=== PATIENT | male | born 1955 | race Caucasian/White ===

== ENCOUNTER → 2021-02-13 13:39 | Outpatient (BNVA) | payer OTHER, SELFPAY | PROVIDERS: Family Provider Family Medicine; Visit Provider Surgery | DX: K62.5 Hemorrhage of anus and rectum (principal) | CPT/HCPCS: 87635 ==

== ENCOUNTER 2021-02-18 06:13 | Day surgery (SDC) | payer OTHER, SELFPAY ==
[2021-02-18 06:33] VITALS: BP 155/89; PULSE 59; RESP 18; TEMP 36.4; O2SAT 96
[2021-02-18] MEDS: sodium chloride 0.9% 1,000 ML 30 ML IV (06:39)
--- NOTE | 2021-02-18 07:49 | W.PM.OPSFHP ---
Same Day Surgery H&P Indication for Procedure/HPI DATE OF PROCEDURE: February 18, 2021 CHIEF COMPLAINT/INDICATIONFOR SURGICAL PROCEDURE: hematochezia, colonoscopy PREOP DIAGNOSIS: diagnostic PLANNED PROCEDRUE: Operation Date: 02/18/21 07:30 Proposed Procedures p Colonoscopy 65731 k62.5(Not Applicable) - Jose Raul Hi MD Medications/Allergies* Home Medications Medication Instructions Recorded Confirmed Type amlodipine 10 mg tablet 10 mg PO DAILY 01/18/21 02/18/21 History bupropion HCl 100 mg tablet 100 mg PO BID 01/18/21 02/18/21 History cholecalciferol (vitamin D3) 50 50 mcg PO DAILY 01/18/21 02/18/21 History mcg (2,000 unit) capsule hydrochlorothiazide 12.5 mg tablet 12.5 mg PO DAILY 01/18/21 02/18/21 History metoprolol tartrate 100 mg tablet 100 mg PO BID 01/18/21 02/18/21 History Allergies/Adverse Reactions Allergy/AdvReac Type Severity Reaction Status Date / Time No Known Allergies Allergy Verified 02/18/21 06:33 Current Medications: Generic Name Dose Route Start Last Admin Trade Name Freq PRN Reason Stop Dose Admin Sodium Chloride 1,000 mls @ 30 mls/hr 02/18/21 06:30 02/18/21 06:39 Sodium Chloride 0.9% IV 02/19/21 06:29 30 mls/hr .Q24H BAILEY Administration Pertinent History/Comorbid Conditions* Medical History (Updated 01/18/21 @ 11:55 by Jose Raul Hi MD) Depression Hypertension Surgical History (Updated 01/18/21 @ 11:55 by Jose Raul Hi MD) History of cholecystectomy 1991 Family History (Updated 01/18/21 @ 11:30 by Rosi Ross) Cancer Denies family history of Diabetes CAD (coronary artery disease) Hypertension Stroke Social History Smoking and tobacco status: former smoker Alcohol intake: current Alcohol intake frequency: few times a month Lives independently: Yes Marital status: / Pertinent Exam Findings alert, oriented x 3, regular rate & rhythm and operative site marked Recommendations Surgery/Procedure today Coding Level of Care Code Acute Meat And Seafood Manager for Mikey Mallory
--- NOTE | 2021-02-18 07:54 | ANES.PREANE2 ---
Pre-Anesthetic Assessment Pre-Anesthetic Assessment: Height/Weight: Height 1.8 m Weight 102.058 kg Temp Pulse Resp BP Pulse Ox 97.5 F L 59 L 18 155/89 96 02/18/21 06:33 02/18/21 06:33 02/18/21 06:33 02/18/21 06:33 02/18/21 06:33 Preop Diagnosis: diagnostic Proposed Procedure: Operation Date: 02/18/21 07:30 Proposed Procedures p Colonoscopy 67826 k62.5(Not Applicable) - Jose Raul Hi MD Was Beta Markus taken within 24 hours: Yes Last intake: Intake Last Liquid Date 02/17/21 Last Solid Date 02/16/21 Social: Social History: Tobacco Exam: Pre-Anes Outpt Exam: alert, oriented x 3, clear to auscultation bilaterally and regular rate & rhythm Airway: Submandibular: WNL Cervical ROM: WNL MP: 2 Dentition: Full History/ROS: No significant history except as noted and No significant complaints CV/HEM: CV/HEM: HTN : : None reported Hepatic: Hepatic: None reported GI: GI: None reported Metabolic: Metabolic: None reported Musc/skel: Musc/skel: None reported Neuropsych: Neuropsych: Depression Anesthetic Plan: ASA status: 2 Anesthesia: Anesthesia Evaluation and MAC Risk of > 500 ml blood loss (7ml/kg in children): No Meds/Allergies Current Medications: Current Medications Generic Name Dose Route Start Last Admin Trade Name Freq PRN Reason Stop Dose Admin Sodium Chloride 1,000 mls @ 30 ml s/hr 02/18/21 06:30 02/18/21 06:39 Sodium Chloride 0.9% IV 02/19/21 06:29 30 mls/hr .Q24H BAILEY Administration PFSH Anesthesia PFSH: Medical History Depression Hypertension Surgical History History of cholecystectomy 1990 Family History Other Cancer Denies family history of Diabetes CAD (coronary artery disease) Hypertension Stroke Social History Smoking and tobacco status: former smoker Alcohol intake: current Alcohol intake frequency: few times a month Lives independently: Yes Marital status: / Data Anesthesia Cardiac Studies: No Data to Display
[2021-02-18 08:28] VITALS: BP 153/88; PULSE 62; RESP 20; TEMP 36.7; O2SAT 96
[2021-02-18 08:43] VITALS: BP 167/89; PULSE 54; RESP 18; TEMP 36.6; O2SAT 98
--- NOTE | 2021-02-18 15:47 | ANE.PACU2 ---
Inpatient post-anesthesia follow up: Airway intact: Yes Vital signs: Temperature 97.8 F Pulse Rate 54 Respiratory Rate 18 Blood Pressure 167/89 Pulse Oximetry 98 Oxygen Delivery Me thod Room Air Oxygen Flow Rate Fraction of Inspir ed Oxygen Hydration adequate: Yes Nausea and vomiting: No Pain level: 1 Mental status: Baseline
== END 2021-02-18 09:10 | disposition home or self-care (01) ==
PROVIDERS: Family Provider Family Medicine; Visit Provider Surgery
PROC: 0DJD8ZZ Inspection of Lower Intestinal Tract, Via Natural or Artificial Opening Endoscopic (ICD-10-PCS; CPT 45378; principal; 2021-02-18 07:30)
DX: K92.1 Melena (principal); F32.9 Major depressive disorder, single episode, unspecified; I10 Essential (primary) hypertension; Z90.49 Acquired absence of other specified parts of digestive tract; Z87.891 Personal history of nicotine dependence; K57.30 Diverticulosis of large intestine without perforation or abscess without bleeding; D12.5 Benign neoplasm of sigmoid colon; K64.8 Other hemorrhoids
CPT/HCPCS: 45380; 88305; 96360; 96361; J2704; J7030

== ENCOUNTER 2022-03-18 08:50 | Outpatient (CLI) | payer OTHER, SELFPAY ==
--- NOTE | 2022-03-18 09:38 | PFTS_ITS ---
Date of Study:03/18/22 Date of Dictation: MECHANICS: Forced vital capacity (FVC) is normal. Forced expiratory volume in one second (FEV1) is normal. FEV1/FVC is normal. FLOW VOLUME LOOP: Mild scooping. LUNG VOLUMES: Total lung capacity (TLC) is normal. Residual volume (RV) is normal. DIFFUSING CAPACITY FOR CARBON MONOXIDE: Normal. INTERPRETATION: The postbronchodilator spirometry is normal. There is no significant postbronchodilator response. The flow-volume loop is consistent with small airways disease. Lung volumes are normal. Gas exchange (DLCO) is normal. MTDD
== END 2022-03-18 08:51 | disposition home or self-care (01) ==
LOC: RT 08:51
PROVIDERS: PCP Family Medicine; Visit Provider Family Medicine
DX: R06.00 Dyspnea, unspecified (principal)
CPT/HCPCS: 94010; 94726; 94729; J7614

== ENCOUNTER → 2022-03-27 13:08 | Outpatient (BNVA) | payer OTHER, SELFPAY | PROVIDERS: PCP Family Medicine; Visit Provider Internal Medicine | DX: I10 Essential (primary) hypertension (principal); R06.00 Dyspnea, unspecified; R06.02 Shortness of breath | CPT/HCPCS: 36415; 80048; 83880; 93005; 99203; 99204 ==

== ENCOUNTER → 2022-05-15 09:09 | Outpatient (BNVA) | payer OTHER, SELFPAY | PROVIDERS: PCP Family Medicine; Visit Provider Nurse Practitioner Family | DX: I48.0 Paroxysmal atrial fibrillation (principal); Z79.01 Long term (current) use of anticoagulants; Z86.16 Personal history of COVID-19 | CPT/HCPCS: 93005; 99213 ==

== ENCOUNTER 2022-05-15 09:22 | Outpatient (CLI) | payer OTHER, SELFPAY | END 2022-05-15 09:23 | disposition home or self-care (01) | LOC: HCSOACUTE 05-22 11:58 | PROVIDERS: PCP Family Medicine; Visit Provider Internal Medicine | DX: Z53.8 Procedure and treatment not carried out for other reasons (principal) | CPT/HCPCS: 93005; 99213 ==

== ENCOUNTER 2022-07-03 09:01 | Outpatient (CLI) | payer OTHER, SELFPAY ==
--- NOTE | 2022-07-03 | ECG_ITS ---
[facility] Test Date: 2022-07-03 Pat Name: Daniel Torres Department: Room: Gender: Male Fabrication Manager: Heather Hna : 1955 Requested By: Perez Calzada Order Number: [id number] Kelli MD: Senia Conner M.D. Interpretive Statements NAME OF STUDY: LEXISCAN SESTAMIBI STRESS TEST INDICATION: Chest Pain PROCEDURE: At the baseline, the blood pressure was 118/70 mmHg with a heart rate of 63 bpm. The electrocardiogram showed ectopic atrial rhythm at [address] changes. The Lexiscan was infused over a period of 20 seconds. A total of 0.4 milligrams of Lexiscan was infused. The stress phase was continued for a total of 5 minutes. Heart rate at the end of the stress phase was 76 beats per min with a blood pressure of 122/73 mmHg. The EKG at the peak infusion revealed no significant ST-T wave changes. The study was terminated due to protocol completion. Sestamibi was injected 20 seconds after the Lexiscan infusion. Blood pressure at the end of the recovery phase was 111/70 mmHg with a heart rate of 75 beats per minute. CONCLUSION: 1. No significant EKG changes with the LexiScan infusion. 2. No LexiScan induced chest pain or cardiac arrhythmia. 3. Normal blood pressure and heart rate response. 4. Sestamibi/sestamibi perfusion scan pending; see separate report. Electronically Signed On 07-06-2022 11:17:10 COLD WORKING INSPECTOR by Senia Conner M.D. [id number]
[2022-07-03 09:33] VITALS: BMI 32.1
--- NOTE | 2022-07-03 10:16 | NMCV_ITS ---
NM tiffani perf SPECT r/s* [id number] EduardDaniel krishnan Age: 66 Gender: M : 1955 Exam Date: 07/03/2022 10:15 Ordering Phys: Perez Calzada M.D ([email or web address]) Technologist: MALIK Matta Exam Location: [facility] Indications: CHEST PAIN STRESS TEST Please see separate stress test report in [facility] for full findings IMAGE PROTOCOL Rest/Stress 1 Lexiscan Day Radiopharmaceutical Dose (mCi) Administration Site Administered by Rest: Tc-99m 10.6 IV MALIK Machado Sestamibi Stress:Tc-99m 32.5 IV MALIK Machado Sestamiezra Rest: 03-Jul-2022 60 Discovery 630 Stress: 03-Jul-2022 30 Discovery 630 0.4mg Lexiscan. Images obtained in supine and prone position. SPECT RESULTS Technical Quality: Excellent Raw Data Analysis: Normal Image Corrections: No attenuation or motion correction applied Summed Stress Score: 2 Summed Rest Score: 5 Summed Difference Score: 0 PERFUSION FINDINGS Small sized perfusion abnrmality of moderate severity of mid to apical inferior, apical septal, apical lateral and apical rae on rest images with improved tracer uptake on stress images. This is suggestive of attenuation artifact. FUNCTIONAL RESULTS (calculated via Gated SPECT) Stress Image LV EF (%): 66 Stress EDV (mL):127 TID: 0.94 Stress ESV (mL):43 FUNCTIONAL FINDINGS: The left ventricle is normal in size. Transient Ischemia Dilatation of 0.94. The left ventricular ejection fraction is normal with a value of 66%. There is normal left ventricular wall thickening. Normal end diastolic and end systolic volumes. IMPRESSIONS 1. Myocardial perfusion imaging is normal. Attenuation artifact noted in inferior and apical rae. 2. Overall left ventricular systolic function is normal without regional wall motion abnormalities, LVEF=66%. 3. EKG portion of the study will be reported separately. Senia Conner MD (Electronically Signed) Final Date: 05 July 2022 19:02 S
[2022-07-03] MEDS: regadenoson 0.4 Mg/5 ml Syringe IVP (11:00)
[2022-07-03 13:00] VITALS: BP 111/70; PULSE 70
== END 2022-07-03 09:02 | disposition home or self-care (01) ==
LOC: CDL 09:03
PROVIDERS: PCP Family Medicine; Visit Provider Internal Medicine
DX: R07.9 Chest pain, unspecified (principal)
CPT/HCPCS: 78452; 93017; A9500; J2785

== ENCOUNTER → 2022-07-22 11:56 | Outpatient (BNVA) | payer OTHER, SELFPAY | PROVIDERS: PCP Family Medicine; Visit Provider Internal Medicine | DX: I10 Essential (primary) hypertension (principal); R06.00 Dyspnea, unspecified; I48.0 Paroxysmal atrial fibrillation; Z79.01 Long term (current) use of anticoagulants; F17.200 Nicotine dependence, unspecified, uncomplicated | CPT/HCPCS: 99214 ==

== ENCOUNTER → 2022-07-30 10:43 | Outpatient (BNVA) | payer OTHER, SELFPAY | PROVIDERS: PCP Family Medicine; Visit Provider Nurse Practitioner Family | DX: I48.0 Paroxysmal atrial fibrillation (principal) | CPT/HCPCS: 99213 ==

== ENCOUNTER 2023-02-24 08:28 | Outpatient (CLI) | payer OTHER, SELFPAY ==
--- NOTE | 2023-02-24 08:36 | USCV_ITS ---
MelissaDaniel Age: 67 Gender: M : 1955 Exam Date: 02/24/2023 08:43 Ordering Phys: Anat Ulloa MD Technologist: CT Exam Location: [facility] [place] Indication: screening HISTORY: Diameter (cm) AP x Transverse x Length Velocity (cm/s) Waveform Prox Aorta: 2.40 x 2.43 x 60.30 Mid Aorta: 2.12 x 2.12 x 59.10 Distal Aorta: 1.92 x 1.75 x Right Iliac Prox: 0.94 x 1.17 x 102.10 Left Iliac Prox: 1.15 x 1.26 x 59.70 Stent Prox Landing x x Aneurysmal Sac Max x x Lt Lat Sac Dim Rt Lat Sac Dim Stent Dist Landing x x Right Iliac Stent x x Left Iliac Stent x x Right Renal Art Left Renal Art FINDINGS: Comparison: none available. A complete assessment of the abdominal aorta was not possible. No evidence of abdominal aortic or bilateral iliac aneurysm. Normal Doppler flow velocites noted throught the aorta and common iliac arteries. CONCLUSIONS Limited but no AAA seen. Dr. Syl Ruff DO (Electronically Signed) Final Date: 24 February 2023 10:22 S
== END 2023-02-24 08:29 | disposition home or self-care (01) ==
LOC: RAD 08:31
PROVIDERS: PCP Family Medicine; Visit Provider Family Medicine
DX: Z13.6 Encounter for screening for cardiovascular disorders (principal)
CPT/HCPCS: 76706

== ENCOUNTER → 2023-03-27 09:10 | Outpatient (BNVA) | payer OTHER, SELFPAY | PROVIDERS: PCP Family Medicine; Visit Provider Internal Medicine Pulmonary Disease | DX: F17.200 Nicotine dependence, unspecified, uncomplicated; Z12.2 Encounter for screening for malignant neoplasm of respiratory organs; R06.09 Other forms of dyspnea | CPT/HCPCS: 36415; 82785; 86003; 99204 ==

== ENCOUNTER → 2023-04-21 12:50 | Outpatient (BNVA) | payer OTHER, SELFPAY | PROVIDERS: PCP Family Medicine; Visit Provider Internal Medicine | DX: I10 Essential (primary) hypertension (principal); R06.00 Dyspnea, unspecified; I48.0 Paroxysmal atrial fibrillation; Z79.01 Long term (current) use of anticoagulants; F17.200 Nicotine dependence, unspecified, uncomplicated | CPT/HCPCS: 99214 ==

== ENCOUNTER → 2023-06-12 10:57 | Outpatient (BNVA) | payer OTHER, SELFPAY | PROVIDERS: PCP Family Medicine; Visit Provider Internal Medicine Pulmonary Disease | DX: J44.89 Other specified chronic obstructive pulmonary disease (principal); Z12.2 Encounter for screening for malignant neoplasm of respiratory organs; F17.210 Nicotine dependence, cigarettes, uncomplicated; J82.83 Eosinophilic asthma | CPT/HCPCS: 99214 ==

== ENCOUNTER 2023-12-07 07:34 | Outpatient (CLI) | payer OTHER, SELFPAY ==
--- NOTE | 2023-12-07 08:00 | USCV_ITS ---
Daniel Torres Age: 68 Gender: M : 1955 Exam Date: 12/07/2023 08:03 Ordering Phys: Perez Calzada M.D ([email or web address]) Technologist: [place] [facility] [place]: murmur BP: 128 / 77 HR: 77 Rhythm: Sinus Technical Quality: Adequate MEASUREMENTS (Male / Female) Normal Values 2D ECHO LV Diastolic Diameter PLAX 5.5 cm 4.2 - 5.9 / 3.9 - 5.3 cm IVS Diastolic Thickness 1.3 cm 0.6 - 1.0 / 0.6 - 0.9 cm IVS Systolic Thickness 1.5 cm LVPW Diastolic Thickness 1.2 cm 0.6 - 1.0 / 0.6 - 0.9 cm LVPW Systolic Thickness 1.4 cm LVOT Diameter 2.0 cm LV Ejection Fraction 2D Teich 62.1 % LV Ejection Fraction MOD 2C 60.2 % LV Ejection Fraction 2C AL 61.0 % LA Diameter 3.6 cm RA Systolic Volume 4C AL 53.1 ml RA Systolic Volume 4C MOD 50.6 ml Aorta at Sinotubular Diameter 2.2 cm IVC Diameter 2.6 cm M-MODE LA Ao Ratio MM 1.2 AV Cusp Separation MM 2.4 cm DOPPLER AV Peak Velocity 138.0 cm/s LVOT Peak Velocity 128.0 cm/s AV Area Cont Eq vti 3.1 cm squared AV Area Cont Eq pk 2.9 cm squared MV Peak Velocity 108.0 cm/s MV Area PHT 4.0 cm squared Mitral E to A Ratio 1.0 TV Peak Velocity 182.5 cm/s TR Peak Velocity 201.5 cm/s TR Peak Gradient 16.2 mmHg TR Mean Velocity 136.0 cm/s TR Mean Gradient 8.8 mmHg TR Velocity Time Integral 52.0 cm TV Peak E Velocity 107.0 cm/s Right Atrial Pressure 3.0 mmHg Pulmonary Artery Systolic Pressu 19.2 mmHg PV Peak Velocity 107.0 cm/s FINDINGS Left Ventricle Left ventricle is normal in size. LV systolic function is normal with EF of 55 to 60%. No regional wall motion abnormalities are seen. Right Ventricle Normal in size and function Right Atrium Normal in size Left Atrium Normal in size Mitral Valve Structurally normal mitral valve.Mild mitral regurgitation. Aortic Valve Structurally normal aortic valve. Tricuspid Valve Mild tricuspid regurgitation. Insufficient TR jet to evaluate RVSP. Pulmonic Valve Not well visualized Pericardium Normal Aorta Normal in size IVC Grossly normal CONCLUSIONS LV systolic function is normal with EF 55 to 60%. Mild mitral regurgitation. Mild tricuspid regurgitation No comparison studies are available. Perez Calzada MD (Electronically Signed) Final Date: 12 December 2023 21:12 S
== END 2023-12-07 07:35 | disposition home or self-care (01) ==
LOC: RAD 07:35
PROVIDERS: PCP Family Medicine; Visit Provider Internal Medicine
DX: R01.1 Cardiac murmur, unspecified (principal); I08.1 Rheumatic disorders of both mitral and tricuspid valves
CPT/HCPCS: 93306

== ENCOUNTER → 2024-01-19 12:12 | Outpatient (BNVA) | payer OTHER, SELFPAY | PROVIDERS: PCP Family Medicine; Visit Provider Internal Medicine | DX: I10 Essential (primary) hypertension (principal); R06.00 Dyspnea, unspecified; I48.0 Paroxysmal atrial fibrillation; F17.210 Nicotine dependence, cigarettes, uncomplicated; Z79.01 Long term (current) use of anticoagulants | CPT/HCPCS: 99214 ==

== ENCOUNTER 2024-10-06 12:45 | Inpatient (IN) | payer OTHER, SELFPAY ==
[2024-10-06] VITALS (28 sets, daily range): BP systolic 77–132; BP diastolic 54–92; PULSE 127–160; RESP 16–28; TEMP 37; O2SAT 91–96; BMI 36.2
--- NOTE | 2024-10-06 12:42 | ECG_ITS ---
[facility] Date: 2024-10-06 Pat Name: Daniel Torres Department: Room: Gender: Male Tire Service Supervisor: : 1955 Requested By: Lauro Villa Order Number: [id number] Kelli MD: Perez Calzada M.D. Measurements Intervals [place] Rate: 167 P: 0 [place]: 0 QRS: 47 QRSD: 88 T: 59 QT: 259 QTc: 432 Interpretive Statements ATRIAL FIBRILLATION WITH RAPID VENTRICULAR RESPONSE NONSPECIFIC T-WAVE ABNORMALITY No previous ECG available for comparison Electronically Signed On 10-06-2024 21:49:52 RESEARCH AIDE by Perez Calzada M.D. [id number]
--- NOTE | 2024-10-06 12:42 | XR_ITS ---
WS: [id number] Portable AP upright chest, 10/06/2024 Clinical Data: dyspnea/cough Comparison: Two-view chest, 03/12/2022 Findings: No nodules, masses or effusions are seen. The heart is normal. The pulmonary vascularity is not increased. No pneumonia or pneumothorax is seen. The diaphragms are flattened. The aortic arch and descending thoracic aorta show mild tortuosity. There are monitor leads on the chest wall. XR/XR chest 1V portable [id number] Impression: Hyperinflation and atherosclerosis.
--- NOTE | 2024-10-06 12:50 | W.ED.SOB ---
HPI - SOB/Dyspnea General: Chief Complaint: Shortness of Breath/Dyspnea Stated Complaint: sob History of Present Illness: HPI Narrative: 69-year-old male presents emergency room complaining shortness of breath rapid heart rate last few days. He states he had a bit of a fever at times he is not have a fever at the time he arrives here. No vomiting no diarrhea no chest pain he has been extremely short of breath with any minimal activity. He has a known history of A-fib and is currently on Eliquis and metoprolol 50 mg twice a day has not had any recent medication changes. Associated symptoms: Reports orthopnea and palpitations; Deny abdominal pain, chest pain or fever(s) Related Data Home Medications ?Medication ?Instructions ?Recorded ?Confirmed cholecalciferol (vitamin D3) 50 50 mcg PO DAILY 01/18/21 10/06/24 mcg (2,000 unit) capsule potassium chloride 20 mEq 20 meq PO DAILY 03/27/22 10/06/24 tablet,extended release tamsulosin 0.4 mg capsule (Flomax) 0.4 mg PO DAILY 03/27/22 10/06/24 apixaban 5 mg tablet 5 mg PO BID 05/15/22 10/06/24 ascorbic acid (vitamin C) 500 mg 500 mg PO DAILY 05/15/22 10/06/24 capsule aspirin 81 mg tablet,delayed 81 mg PO DAILY 05/15/22 10/06/24 release (Adult Aspirin Regimen) hydrochlorothiazide 25 mg tablet 12.5 mg PO DAILY 10/06/24 10/06/24 Previous Rx's ?Medication ?Instructions ?Recorded furosemide 20 mg tablet (Lasix) 20 mg PO DAILY #30 tabs 01/19/24 diltiazem HCl 60 mg tablet 60 mg PO Q12H 30 days #60 tabs 10/08/24 metoprolol tartrate 25 mg tablet 25 mg PO Q12H 30 days #60 tabs 10/08/24 Allergies Allergy/AdvReac Type Severity Reaction Status Date / Time levofloxacin (From Levaquin) Allergy Unknown Unknown Verified 01/19/24 13:01 Review of Systems Const: Denies: fever(s) or chills Card: Reports: palpitations, irregular heart rhythm, dyspnea on exertion and orthopnea; Denies: chest pain, edema or swelling of feet/ankles Resp: Reports: dyspnea GI: Denies: abdominal pain : Denies: dysuria, urinary frequency or urinary urgency Musc: Denies: neck pain or back pain Skin/Breast: Denies: rash PFSH ED PFSH: Medical History Atrial fibrillation Depression Hypertension Surgical History History of cholecystectomy 1991 Family History Other Cancer Denies family history of Diabetes CAD (coronary artery disease) Hypertension Stroke Social History Smoking and tobacco/nicotine status: current every day tobacco/nicotine user cigarettes Packs smoked per day: 2 Years cigarettes smoked: 50 [ Other cigarette details: started at age 16] Quit status (tobacco/nicotine): considering quitting Alcohol intake: current Alcohol intake frequency: few times a month Substance/Drug Use: never Lives independently: Yes Marital status: / Physical Exam Const: GENERAL APPEARANCE: cooperative ORIENTATION/CONSCIOUSNESS: Yes awake, Yes oriented to person, Yes oriented to place and Yes oriented to time HENMT: COMMON NORMALS: normocephalic, atraumatic and hearing grossly normal bilaterally HEAD & SCALP: normocephalic and atraumatic Resp: COMMON NORMALS: normal respiratory effort, No retractions and No use of accessory muscles AUSCULTATION: crackles Cardio: COMMON NORMALS: No murmurs present (Cardio) RATE: tachycardic RHYTHM: abnormal rhythm irregularly irregular GI: COMMON NORMALS: Soft to palpation and No hepatosplenomegaly present AUSCULTATION: Yes normoactive bowel sounds PALPATION: Yes Soft to palpation, No Tenderness to palpation present (GI), No Guarding due to palpation present (GI) and Yes No hepatosplenomegaly present Extremity: COMMON NORMALS: normal to inspection, capillary refill normal and no calf tenderness OTHER: Trace edema lower extremities Neuro: SENSORIUM/ORIENTATION: Yes oriented to person, Yes oriented to place and Yes oriented to time Skin: COMMON NORMALS: no rashes or lesions noted GENERAL SKIN EXAM: no rashes or lesions noted Course Vital Signs: Vital signs: Vital Signs Temperature 98.3 F 10/08/24 12:00 Pulse Rate 84 10/08/24 16:27 Respiratory Rate 20 H 10/08/24 16:27 Blood Pressure 152/78 10/08/24 16:27 Pulse Oximetry 98 10/08/24 16:27 Oxygen Delivery Me thod Room Air 10/08/24 15:15 Oxygen Flow Rate 2 10/08/24 07:25 MDM - SOB/Dyspnea Medical Decision Making Patient has persistent A-fib we are unable to get him to stop with Cardizem blood pressure decreased we switched to amiodarone and on 1 mg/h he is still having persistent A-fib RVR. He is stable at this time but his heart rate continues to be elevated to 130s and 140s. Chest x-ray was normal. No acute EKG changes other than his A-fib with RVR. Cardiac enzymes negative. Medical Records I reviewed the patient's medical records. Lab Data I reviewed the patient's lab results. 10/08/24 02:20 10/08/24 02:20 Labs/Radiology: Radiology Impressions Chest X-Ray 10/06/24 12:42 Impression: Hyperinflation and atherosclerosis. Chest CT 10/06/24 16:05 IMPRESSION: 1. Mild tree-in-bud nodularity bilaterally favors an atypical infectious process. Consider imaging follow-up after clinical treatment to document resolution. 2. 6 mm left upper lobe ground-glass nodule. For patients at low risk (minimal or absent history of smoking and of other known risk factors), no routine follow-up is indicated. For patients at high risk (history of smoking or of other known risk factors), consider optional CT Chest at 12 months. (Reference: Gela) 3. Hepatic steatosis. 4. Status post cholecystectomy. 5. Colonic diverticulosis. 6. Left adrenal nodules may represent adenomas. In a patient with no cancer history, consider 12 month follow-up adrenal CT. (Reference: Isabel) COMMENTS: Consistent with the [place] [employer]'s Incidental Findings Committee white paper (J Am Gabriel Radiol 2017): For any incidental adrenal lesion greater than or equal to 1 cm but less than or equal to 4 cm classified in this report as benign, likely benign, or containing fat (including classification as an adenoma or myelolipoma), no follow-up imaging is recommended per consensus recommendations based on imaging criteria. Further lab evaluation could be pursued if warranted based on clinical findings. REFERENCES: 1. Isabel REEDER, et al. Management of Incidental Adrenal Masses: A White Paper of the ACR Incidental Findings Committee. J Am Gabriel Radiol. 2017;14(8):2322-9336. 2. Gela Bateman et al. Guidelines for Management of Incidental Pulmonary Nodules Detected on CT Images: From the Fleischner Society 2017. Radiology. 2017;284(1):228-243. Liver Ultrasound 10/08/24 08:41 IMPRESSION: 1. Hepatic steatosis with hepatomegaly. 2. Post cholecystectomy with no biliary dilatation. Laboratory Results WBC 9.60 10^3/uL (3.29-11.43) 10/06/24 12:49 RBC 5.68 10^6/uL (3.85-5.65) H 10/06/24 12:49 Hgb 16.30 g/dL (11.27-16.99) 10/06/24 12:49 Hct 47.7 % (37-53) 10/06/24 12:49 MCV 84.0 fl (82-101) 10/06/24 12:49 MCH 28.7 pg (27-33) 10/06/24 12:49 MCHC 34.2 g/dL (30-55) 10/06/24 12:49 RDW 13.6 % (12.1-15.1) 10/06/24 12:49 Plt Count 234 10^3/cmm (157-399) 10/06/24 12:49 MPV 9.5 fL (7.4-10.4) 10/06/24 12:49 Neut % (Auto) 72.9 % 10/06/24 12:49 Lymph % (Auto) 19.0 % 10/06/24 12:49 [place] % (Auto) 7.2 % 10/06/24 12:49 Eos % (Auto) 0.1 % 10/06/24 12:49 Baso % (Auto) 0.4 % 10/06/24 12:49 Neut # (Auto) 7.00 10^3/uL (1.8-7.7) 10/06/24 12:49 Lymph # (Auto) 1.8 10^3/uL (0.8-4.8) 10/06/24 12:49 [place] # (Auto) 0.7 10^3/uL (0.2-0.9) 10/06/24 12:49 Eos # (Auto) 0.0 10^3/uL (0.0-0.8) 10/06/24 12:49 Baso # (Auto) 0.0 10^3/uL (0.0-0.1) 10/06/24 12:49 Nucleated RBC % (auto) 0 % 10/06/24 12:49 Nucleated RBCs # 0.0 /100WBC 10/06/24 12:49 PT 14.10 SECONDS (12.1-14.9) 10/06/24 12:49 INR 1.02 (0.8-1.2) 10/06/24 12:49 Sodium 137 mmol/L (136-145) 10/06/24 12:49 Potassium 3.5 mmol/L (3.5-5.1) 10/06/24 12:49 Chloride 100 mmol/L (98-107) 10/06/24 12:49 Carbon Dioxide 24 mmol/L (22-29) 10/06/24 12:49 Anion Gap 16.5 (5-19) 10/06/24 12:49 BUN 15 mg/dL (8-23) 10/06/24 12:49 Creatinine 0.9 mg/dL (0.7-1.2) 10/06/24 12:49 GFR Calculation 83.9 mL/min (90-130) L 10/06/24 12:49 Glucose 118 mg/dL (65-115) H 10/06/24 12:49 Estimat Average Glucose 117 10/06/24 12:49 Hemoglobin A1c 5.7 % (4.0-6.0) 10/06/24 12:49 Calculated Osmolality 286 mOsm/kg (285-295) 10/06/24 12:49 Lactic Acid 1.5 mmol/L (0.5-2.2) 10/06/24 12:49 Calcium 8.4 mg/dL (8.5-10.5) L 10/06/24 12:49 Magnesium 1.7 mg/dL (1.7-2.3) 10/06/24 15:28 Total Bilirubin 0.5 mg/dL (0.15-1.2) 10/06/24 12:49 AST 50 U/L (0-40) H 10/06/24 12:49 ALT 76 U/L (0-41) H 10/06/24 12:49 Alkaline Phosphatase 69 U/L (40-130) 10/06/24 12:49 Troponin T Baseline 16 ng/L (0-15) H 10/06/24 12:49 Troponin T 120 Minute 14.61 ng/L (0-15) 10/06/24 15:28 Delta Troponin T -1.39 ABS# (0-10) L 10/06/24 15:28 C-Reactive Protein 5.9 mg/L (0.0-4.9) H 10/06/24 15:28 NT-Pro-B Natriuret Pep 711 pg/mL (0-125) H 10/06/24 15:28 Total Protein 7.0 g/dL (6.6-8.7) 10/06/24 12:49 Albumin 3.7 g/dL (3.5-5.2) 10/06/24 12:49 Globulin 3.3 g/dL (1.3-4.6) 10/06/24 12:49 Triglycerides 81 mg/dL (0-150) 10/06/24 15:28 Cholesterol 95 mg/dL (0-200) 10/06/24 15:28 LDL Cholesterol, Calc 47 mg/dL (50-129) L 10/06/24 15:28 HDL Cholesterol 32 mg/dL (60-100) L 10/06/24 15:28 LDL/HDL Ratio 1.47 RATIO (0.00-3.22) 10/06/24 15:28 Cholesterol/HDL Ratio 2.97 mg/dL (1.0-5.00) 10/06/24 15:28 Procalcitonin 0.07 ng/mL (0-0.5) 10/06/24 15:28 All radiology interpretation(s) finalized by discharge Discharge Plan Discharge Patient Disposition: Admitted As Inpatient Admit Provider: Alejandro Grimes Clinical Impression: Atrial fibrillation with rapid ventricular response Condition: Stable Discharge Diet: Cardiac Discharge Activity: Resume usual activity Coding Level of Care Code ED Public Relations Coordinator for [employer]enc[employer] Mohamud
[2024-10-06] MEDS: dilTIAZem 5 mg/mL SDV 5 mL 20 MG IVP (12:52)
[2024-10-06 12:55] LABS: Basophils % 0.4 %; Eosinophils % 0.1 %; Hematocrit 47.7 % (37-53); Lymphocytes # 1.8 10^3/uL (0.8-4.8); Mean Corpuscular HGB Conc 34.2 g/dL (30-55); Mean Corpuscular Hemoglobin 28.7 pg (27-33); Mean Platelet Volume 9.5 fL (7.4-10.4); Monocytes # 0.7 10^3/uL (0.2-0.9); Monocytes % 7.2 %; Neutrophils % 72.9 %; Nucleated Red Blood Cells % 0 %; Platelet Count 234 10^3/cmm (157-399); Red Blood Count 5.68 10^6/uL (3.85-5.65); Red Cell Distribution Width 13.6 % (12.1-15.1)
[2024-10-06 13:11] LABS: Alanine Aminotransferase 76 U/L (0-41); Albumin Level 3.7 g/dL (3.5-5.2); Alkaline Phosphatase 69 U/L (40-130); Anion Gap 16.5 (5-19); Aspartate Amino Transferase 50 U/L (0-40); Blood Urea Nitrogen 15 mg/dL (8-23); Calcium 8.4 mg/dL (8.5-10.5); Carbon Dioxide 24 mmol/L (22-29); Chloride 100 mmol/L (98-107); Creatinine Clr Calc Pharmacy 102.6151; Globulin 3.3 g/dL (1.3-4.6); Glomerular Filtration Rate 83.9 mL/min (90-130); Glucose 118 mg/dL (65-115); Osmolality Calculated 286 mOsm/kg (285-295); Potassium 3.5 mmol/L (3.5-5.1); Sodium 137 mmol/L (136-145); Total Bilirubin 0.5 mg/dL (0.15-1.2)
[2024-10-06] MEDS: dilTIAZem 100 MG in sodium chloride 0.9% (add-van) 100 ML IV (13:34)
--- NOTE | 2024-10-06 14:24 | PC.PHAR ---
Addendum entered by Ally Card 10/06/24 15:24: Refaxed 3:23pm Original Note: [facility] 10/06/24 2:15pm
[2024-10-06] MEDS: amiodarone 150 MG/100 ML PREMIX 400 MG IV (14:42)
--- NOTE | 2024-10-06 15:17 | ECG_ITS ---
[employer] Test Date: 2024-10-06 Pat Name: Daniel Torres Department: Room: EDIP Gender: Male Keno Writer / Runner: : 1955 Requested By: Lauro Villa Order Number: [id number] Kelli MD: Perez Calzada M.D. Measurements Intervals [place] Rate: 154 P: 0 VT: 0 QRS: 79 QRSD: 88 T: 68 QT: 293 QTc: 469 Interpretive Statements ATRIAL FIBRILLATION WITH RAPID VENTRICULAR RESPONSE NONSPECIFIC ST & T-WAVE ABNORMALITY Compared to ECG 10/06/2024 12:51:30 No significant changes Electronically Signed On 10-06-2024 21:48:38 FINAL INSTALLER INSPECTOR by Perez Calzada M.D. [email or web address] [id number]
[2024-10-06 15:57] LABS: Troponin(5th) Baseline 16 ng/L (0-15)
--- NOTE | 2024-10-06 16:03 | PM.HP ---
Providers/Chief Complaint Admitting Physician: Alejandro Grimes MD Primary Care Provider: Anat Ulloa MD Chief Complaint: sob History of Present Illness Daniel Torres is a 69 year old male with a past medical history of obesity, hypertension, diastolic CHF, atrial fibrillation on Eliquis who presents [facility] due to palpitations, shortness of breath. Currently patient is alert oriented x 3, following all commands, he tells me a week ago he was sick, he thinks he had the flu, he had fevers, chills, cough continues to have a cough however sputum vision chills have resolved. But for the last few days he has had palpitations heart rates up into the low 130s 140s at home, he has been taking his Metroprolol taking his Eliquis, continues to have a cough, no fevers, chills but does have diarrhea, no abdominal pain, no chest pain Review of Systems Const: Reports: fatigue and malaise; Denies: fever(s) or chills Card: Reports: palpitations; Denies: chest pain Resp: Reports: dyspnea GI: Denies: abdominal pain Neuro: Denies: headache(s) Medications/Allergies Home Medications ?Medication ?Instructions ?Recorded ?Confirmed ?Last Taken ?Type amlodipine 10 mg tablet 10 mg PO DAILY 01/18/21 10/06/24 10/06/24 History cholecalciferol (vitamin D3) 50 50 mcg PO DAILY 01/18/21 10/06/24 10/06/24 History mcg (2,000 unit) capsule potassium chloride 20 mEq 20 meq PO DAILY 03/27/22 01/19/24 Unknown History tablet,extended release tamsulosin 0.4 mg capsule (Flomax) 0.4 mg PO DAILY 03/27/22 01/19/24 Unknown History apixaban 5 mg tablet 5 mg PO BID 05/15/22 10/06/24 10/06/24 History ascorbic acid (vitamin C) 500 mg 500 mg PO DAILY 05/15/22 10/06/24 10/05/24 History capsule aspirin 81 mg tablet,delayed 81 mg PO DAILY 05/15/22 10/06/24 10/06/24 History release (Adult Aspirin Regimen) furosemide 20 mg tablet (Lasix) 20 mg PO DAILY #30 tabs 01/19/24 01/19/24 Unknown Rx hydrochlorothiazide 25 mg tablet 12.5 mg PO DAILY 10/06/24 10/06/24 10/06/24 History Allergies Allergy/AdvReac Type Severity Reaction Status Date / Time levofloxacin (From Levaquin) Allergy Unknown Unknown Verified 01/19/24 13:01 PFSH Acute PFSH: Medical History Atrial fibrillation Depression Hypertension Surgical History History of cholecystectomy 1991 Family History Other Cancer Denies family history of Diabetes CAD (coronary artery disease) Hypertension Stroke Social History Smoking and tobacco/nicotine status: current every day tobacco/nicotine user cigarettes Packs smoked per day: 2 Years cigarettes smoked: 50 [ Other cigarette details: started at age 16] Quit status (tobacco/nicotine): considering quitting Alcohol intake: current Alcohol intake frequency: few times a month Substance/Drug Use: never Lives independently: Yes Marital status: / Vitals/I&O/Wt Last Vital Signs Temp 98.6 F 10/06/24 12:34 Pulse 140 H 10/06/24 15:40 Resp 16 10/06/24 15:40 BP 98/74 10/06/24 15:40 Pulse Ox 93 10/06/24 15:40 O2 Del Method Nasal Cannula 10/06/24 12:54 O2 Flow Rate 2 10/06/24 12:54 10/06/24 10/06/24 10/06/24 06:59 14:59 22:59 Intake Total 11.916 / 11.916 100 / 111.916 Balance 11.916 / 11.916 100 / 111.916 Weight last 48 hrs Weight 117.934 kg Physical Exam Const: COMMON NORMALS: no acute distress and patient oriented x3 Eye: COMMON NORMALS: Equal, round and reactive pupils present and EOMs intact bilaterally Resp: COMMON NORMALS: normal respiratory effort, No retractions, No use of accessory muscles and clear to auscultation bilaterally AUSCULTATION: crackles and wheezes Cardio: COMMON NORMALS: no JVD, regular rate, regular rhythm, S1 normal heart sound present and S2 normal heart sound present RATE: tachycardic RHYTHM: abnormal rhythm irregularly irregular HEART SOUNDS: S1 normal heart sound present and S2 normal heart sound present GI: COMMON NORMALS: Normal to inspection, nondistended, normoactive bowel sounds present, Soft to palpation and non-tender Extremity: COMMON NORMALS: no pedal edema Neuro: COMMON NORMALS: patient oriented x3, CN's II-XII intact bilaterally and moves all extremities Psych: COMMON NORMALS: mental status grossly normal Data 10/06/24 12:49 10/06/24 12:49 A&P Assessment and plan (1) Asthma-COPD overlap syndrome: (2) Acute hypoxic respiratory failure: (3) Atrial fibrillation with rapid ventricular response: (4) Pneumonia: (5) COPD exacerbation: Plan Acute hypoxic respiratory failure -Multifactorial -A-fib with RVR -Concerns for pneumonia -COPD exacerbation Plan -Monitor cardiac stepdown unit -Sputum cultures -Blood cultures -CRP, Pro-Issac, lactic acid -CT chest -Continue Rocephin -Azithromycin -Troponin series -DuoNeb -Budesonide -Solu-Medrol 125 followed by 40 mg IV every 8 hours A-fib with RVR -Did not respond to Cardizem push, Cardizem drip -Has received amiodarone bolus and amiodarone drip -Heart rates in the 140s blood pressure soft 98/70 -He is alert awake, following all commands, no lightheaded, no dizziness, no chest pain -Will give him a liter bolus -Will consider low-dose metoprolol patient clinical progress -Will consider consultation with cardiology for cardioversion based on clinical progress Full code Eliquis for DVT prophylaxis PDMP PDMP Reviewed: Not Reviewed Attestations Medical Necessity Statement*: Patient requires hospitalization for acute hypoxic respiratory, A-fib with RVR, pneumonia, COPD, inpatient, greater than 2 minutes Diagnoses Asthma-COPD overlap syndrome J44.89 Acute hypoxic respiratory failure J96.01 Atrial fibrillation with rapid ventricular response I48.91 Pneumonia J18.9 COPD exacerbation J44.1
--- NOTE | 2024-10-06 16:05 | CTR_ITS ---
PROCEDURE INFORMATION: Exam: CT Chest Without Contrast; Diagnostic Exam date and time: 10/06/2024 4:36 PM Age: 69 years old Clinical indication: Cough and shortness of breath and wheezing; Additional info: SOB, wheezing, cough TECHNIQUE: Imaging protocol: Diagnostic computed tomography of the chest without contrast. Radiation optimization: All CT scans at this facility use at least one of these dose optimization techniques: automated exposure control; mA and/or kV adjustment per patient size (includes targeted exams where dose is matched to clinical indication); or iterative reconstruction. COMPARISON: CR XR chest 1V portable [id number] 10/06/2024 12:55 PM RADIATION DOSE METRICS: Total DLP (mGy-cm): 618.81 FINDINGS: Lungs: Mild biapical pleural/parenchymal scarring. No focal consolidation or generalized interstitial process. 6 mm ground-glass left upper lobe nodule on series 4, image 28. A few faint areas of tree-in-bud nodularity are seen in the right upper and right middle lobes and to a lesser degree in the lower lobes bilaterally. Pleural spaces: Unremarkable. No pneumothorax. No pleural effusion. Heart: Unremarkable. No cardiomegaly. No pericardial effusion. Lymph nodes: Unremarkable. No enlarged lymph nodes. Vasculature: Mild atherosclerotic aortic calcifications. No thoracic aortic aneurysm. Liver: Hepatic steatosis. Gallbladder and biliary ducts: Status post cholecystectomy. Adrenal glands: Nodular thickening of the left adrenal gland with nodules measuring up to 1.7 cm. These appear relatively low in attenuation. Intestine: Colonic diverticulosis within the visualized upper abdomen. Bones/joints: [id number] degenerative changes of the spine. No acute or aggressive osseous lesion. Soft tissues: 1.4 cm mildly complex fluid collection in the subcutaneous fat of the anterior chest wall to the left of midline likely represents a small sebaceous cyst and appears benign. CT/CT chest wo con [id number] IMPRESSION: 1. Mild tree-in-bud nodularity bilaterally favors an atypical infectious process. Consider imaging follow-up after clinical treatment to document resolution. 2. 6 mm left upper lobe ground-glass nodule. For patients at low risk (minimal or absent history of smoking and of other known risk factors), no routine follow-up is indicated. For patients at high risk (history of smoking or of other known risk factors), consider optional CT Chest at 12 months. (Reference: Gela) 3. Hepatic steatosis. 4. Status post cholecystectomy. 5. Colonic diverticulosis. 6. Left adrenal nodules may represent adenomas. In a patient with no cancer history, consider 12 month follow-up adrenal CT. (Reference: Isabel) COMMENTS: Consistent with the [place] [employer]'s Incidental Findings Committee white paper (J Am Gabriel Radiol 2017): For any incidental adrenal lesion greater than or equal to 1 cm but less than or equal to 4 cm classified in this report as benign, likely benign, or containing fat (including classification as an adenoma or myelolipoma), no follow-up imaging is recommended per consensus recommendations based on imaging criteria. Further lab evaluation could be pursued if warranted based on clinical findings. REFERENCES: 1. Isabel REEDER, et al. Management of Incidental Adrenal Masses: A White Paper of the ACR Incidental Findings Committee. J Am Gabriel Radiol. 2017;14(8):8376-4810. 2. Gela H et al. Guidelines for Management of Incidental Pulmonary Nodules Detected on CT Images: From the Fleischner Society 2017. Radiology. 2017;284(1):228-243.
[2024-10-06 16:14] LABS: ABG PCO2 31.6 mmHg (35-45); ABG PH Result 7.49 (7.35-7.45); Arterial Blood Gas Hematocrit 51.6 % (42-52); Base Excess ABG 1.3 mmol/L (-2.0-2.0); Blood Gas Allen Test Pos; Blood Gas Operator Identificat WALCI; Blood Gas Sample Site Radial, right; Blood Gas Sample Type Arterial; HCO3 ABG 23.8 mmol/L (22-26); Oxygen Device NC; PO2 ABG 63.7 mmHg (80.0-100.0)
[2024-10-06 16:27] LABS: INR 1.02 (0.8-1.2)
[2024-10-06] MEDS: levalbuterol 0.63 mg/3 mL Neb INHALATION (16:28)
[2024-10-06 16:29] LABS: Lactic Sepsis W/Reflex 1.5 mmol/L (0.5-2.2)
[2024-10-06 16:30] LABS: Troponin 5 2HR 14.61 ng/L (0-15); Troponin 5 2HR Delta -1.39 ABS# (0-10)
[2024-10-06 16:41] LABS: NT Pro B Type Natriuretic Pept 711 pg/mL (0-125); Procalcitonin 0.07 ng/mL (0-0.5)
[2024-10-06 16:52] LABS: C Reactive Protein 5.9 mg/L (0.0-4.9); Chol HDL Ratio 2.97 mg/dL (1.0-5.00); Cholesterol 95 mg/dL (0-200); HDL Cholesterol 32 mg/dL (60-100); LDL Cholesterol Calculated 47 mg/dL (50-129); LDL HDL Ratio 1.47 RATIO (0.00-3.22); Magnesium 1.7 mg/dL (1.7-2.3); Triglycerides 81 mg/dL (0-150)
[2024-10-06] MEDS: methylPREDNISolone sod succ 125 mg/2 mL INJ IVP (17:06)
[2024-10-06] MEDS: pantoprazole 40 mg SDV IVP (17:07)
[2024-10-06] MEDS: cefTRIAXone 1,000 mg SDV 1000 MG IVP (17:09)
[2024-10-06 17:13] LABS: Influenza A NEGATIVE (Negative); Influenza B NEGATIVE (Negative); Respiratory Syncytial Virus Ce NEGATIVE (Negative); SARS-CoV-2 PCR NEGATIVE (Negative)
[2024-10-06] MEDS: lactated ringers 500 ML 999 ML IV (17:15)
--- NOTE | 2024-10-06 17:17 | ECG_ITS ---
[employer] Test Date: 2024-10-06 Pat Name: Daniel Torres Department: Room: EDIP Gender: Male [employer]: : 1955 Requested By: Lauro Villa Order Number: [id number] Kelli MD: Perez Calzada M.D. Measurements Intervals [place] Rate: 142 P: 0 MA: 0 QRS: 86 QRSD: 90 T: 32 QT: 310 QTc: 477 Interpretive Statements ATRIAL FIBRILLATION WITH RAPID VENTRICULAR RESPONSE NONSPECIFIC ST & T-WAVE ABNORMALITY Compared to ECG 10/06/2024 16:11:51 No significant changes Electronically Signed On 10-06-2024 22:14:09 REFLESHER by Perez Calzada M.D. [email or web address]
[2024-10-06] MEDS: AZITHROMYCIN ADD-Vantage 500 MG in 0.9% NaCl ADD-Vantage 250 ML 250 MG IV (17:44)
[2024-10-06] MEDS: apixaban 5 mg Tablet PO (18:49)
[2024-10-06 19:58] LABS: Estmated Average Glucose 117; Hemoglobin A1C 5.7 % (4.0-6.0)
[2024-10-06 21:46] LABS: Bilirubin Urine Negative (Negative); Blood Urine Negative (Negative); Glucose Urine UA Negative (Normal); Ketones Urine Trace (Negative); Leukocyte Esterase Urine Negative (Negative); Nitrate Urine Negative (Negative); Protein Urine 1+ (Negative); Specific Gravity, Urine 1.026 (1.005-1.030); Urine Appearance Clear (CLEAR); Urine Color Yellow (Yellow); pH Urine 5.5 (5-7)
[2024-10-06] MEDS: budesonide 0.5 mg/2 mL Neb INHALATION (21:50)
[2024-10-06 21:51] LABS: Add Urine Microscopic? YES; Bacteria Urine None Seen /hpf; Hyaline Casts Urine 10.73 /lpf; RBC Urine 0-2 /hpf (0-2); Squamous Epithelial Cell Urine 0-5 /hpf (0-5); WBC Urine 0-5 /hpf (0-5)
[2024-10-06 22:02] LABS: UA Slide Review UA Slide Review Perf
[2024-10-07] VITALS (66 sets, daily range): BP systolic 100–155; BP diastolic 69–128; PULSE 73–152; RESP 16–30; TEMP 36.6–37.1; O2SAT 90–98; BMI 35.3
[2024-10-07 02:32] LABS: Basophils % 0.2 %; Hematocrit 43.8 % (37-53); Lymphocytes # 0.9 10^3/uL (0.8-4.8); Lymphocytes % 19.6 %; Mean Corpuscular HGB Conc 33.8 g/dL (30-55); Mean Corpuscular Hemoglobin 28.4 pg (27-33); Mean Corpuscular Volume 84.1 fl (82-101); Mean Platelet Volume 9.6 fL (7.4-10.4); Monocytes # 0.1 10^3/uL (0.2-0.9); Nucleated Red Blood Cells % 0 %; Platelet Count 221 10^3/cmm (157-399); Red Blood Count 5.21 10^6/uL (3.85-5.65); Red Cell Distribution Width 13.6 % (12.1-15.1); White Blood Count 4.49 10^3/uL (3.29-11.43)
[2024-10-07 02:49] LABS: Alanine Aminotransferase 88 U/L (0-41); Albumin Level 3.5 g/dL (3.5-5.2); Alkaline Phosphatase 68 U/L (40-130); Anion Gap 18.4 (5-19); Aspartate Amino Transferase 48 U/L (0-40); Blood Urea Nitrogen 15 mg/dL (8-23); Carbon Dioxide 22 mmol/L (22-29); Chloride 100 mmol/L (98-107); Creatinine Clr Calc Pharmacy 102.6151; Globulin 3.1 g/dL (1.3-4.6); Glomerular Filtration Rate 83.9 mL/min (90-130); Glucose 171 mg/dL (65-115); Osmolality Calculated 289 mOsm/kg (285-295); Potassium 3.4 mmol/L (3.5-5.1); Sodium 137 mmol/L (136-145); Total Bilirubin 0.5 mg/dL (0.15-1.2); Total Protein 6.6 g/dL (6.6-8.7)
[2024-10-07 02:58] LABS: Slide Review Slide Review Perform
--- OUTSIDE RECORDS SUMMARY | 2024-10-07 04:41 | XMS_ITS | Encounter Summary ---
Author Name [facility] Organization [facility] Address [address] [place] [address] Care Team Providers Care Civil Engineering Manager Name Role Phone ANAT ULLOA Primary Care Provider Unavailabl e Insurance Providers: All historical and current Section Date Range: From patient's date of to the date document was created. This section includes the names of all active insurance providers for the patient. Insurance Provider Type of Coverage Plan Name Start of Policy Coverage End of Policy Coverage Group Number Member ID Insurance Provider's Telephone Number Policy Venegas's Name Patient's Relationship to Policy Venegas MEDICARE (WNR) MEDICARE (M) PART A Aug 31, 2021 PART A [id number] [place] PATIENT Selected Encounter This section includes the information on record at [place] for the Encounter. Date/Time Encounter Type Encounter Description Reason Provider Source Mar 29, 2024 01:00 PM OFFICE O/P EST MOD 30 MIN PRIMARY CARE/MEDICINE ICD-10-CM I10 Essential (primary) hypertension BRADY ULLOA Y IHE Encounter Template Text not used by [place] Assessments - Encounter Diagnoses This section includes the primary and secondary diagnoses documented for the Encounter. Date/Time Primary/Secondary Diagnosis Diagnosis Name Provider Source Mar 29, 2024 01:37 PM PRIMARY Essential (primary) hypertension [facility] Mar 29, 2024 01:37 PM SECONDARY Adjustment disorder with anxiety [facility] Mar 29, 2024 01:37 PM SECONDARY Adult onset fluency disorder [facility] Mar 29, 2024 01:37 PM SECONDARY Benign prostatic hyperplasia without lower urinry tract symp [facility] Mar 29, 2024 01:37 PM SECONDARY Encounter for immunization [facility] Mar 29, 2024 01:37 PM SECONDARY Major depressive disorder, single episode, unspecified [facility] Mar 29, 2024 01:37 PM SECONDARY Polyp of colon [facility] Mar 29, 2024 01:37 PM SECONDARY Tobacco use [facility] Mar 29, 2024 01:37 PM SECONDARY Unspecified atrial flutter [facility] Mar 29, 2024 01:37 PM SECONDARY Vitamin D deficiency, unspecified [facility] [place] [facility] Lab Results: +/- 30 days of the encounter This section includes the Chemistry and Hematology Lab Results on record with [facility] for the patient. Radiology Reports and Pathology Reports are provided separately, in subsequent sections. Lab Results This section contains the Chemistry/Hematology Results that were resulted 30 days before or 30 daysafter the date of the Encounter. Date/Time Source Result Type Result - Unit Interpretation Reference Range Comment Mar 18, 2024 12:29 PM [facility] HGA1C Specimen Type: BLOOD No comment entered. Ordering Provider: ABEBA ULLOA Report Released Date/Time: Mar 07, 2024 10:34 AM Reporting Lab: [place] [facility] [address] [place] [address] Performing Lab: [place] [facility] [address] [place] [address] HGA1C 5.7 4.0-6.0 Mar 18, 2024 12:29 PM [facility] CHOLESTEROL PANEL (PB) Specimen Type: PLASMA No comment entered. Ordering Provider: ABEBA ULLOA Report Released Date/Time: Mar 07, 2024 10:34 AM Reporting Lab: [place] [facility] [address] [place] [address] Performing Lab: [place] [facility] [address] [place] [address] CHOLESTEROL 154 mg/dL 0-200 TRIGLYCERIDE 59 mg/dL 0-150 CALCULATED LDL 95.2 mg/dL HDL(New) 47.0 mg/dL H >40 HDL % OF TOTAL CHOLESTEROL (PB) 30.5 >25 Mar 18, 2024 12:29 PM [facility] COMPREHENSIVE METABOLIC PANEL Specimen Type: PLASMA No comment entered. Ordering Provider: ABEBA ULLOA MMY Report Released Date/Time: Mar 07, 2024 10:34 AM Reporting Lab: [place] [facility] [address] [place] [address] Performing Lab: [place] [facility] [address] [place] [address] CREATININE 1.00 mg/dL 0.7-1.3 UREA NITROGEN 13 mg/dL 9-25 GLUCOSE 98 mg/dL 72-99 SODIUM 140 meq/L 136-145 POTASSIUM 3.8 meq/L 3.5-5 CHLORIDE 104 meq/L 98-107 CARBON DIOXIDE 27 meq/L 22-31 CALCIUM 9.2 mg/dL 8.4-10.4 PROTEIN 7.6 g/dL 6-8.6 ALBUMIN 4.2 g/dL 3.4-5 TOTAL BILIRUBIN 0.5 mg/dL 0.2-1.2 ALKALINE PHOSPHATASE 54 U/L 40-150 AST/SGOT 21 U/L 5-34 ALT/SGPT 30 U/L 8-40 EGFR (CKD-EPI 2020) 82 Mar 18, 2024 12:29 PM [facility] PROST. SPECIFIC AG.(PB-STL) Specimen Type: SERUM No comment entered. Ordering Provider: ABEBA ULLOA MMLauryn Report Released Date/Time: Mar 07, 2024 10:34 AM Reporting Lab: [place] [facility] [address] [place] [address] Performing Lab: [place] [facility] [address] [place] [address] PROST. SPECIFIC AG.(PB-STL) 0.61 ng/mL 0-4 Mar 18, 2024 12:29 PM [facility] TSH (MA-PB) Specimen Type: SERUM No comment entered. Ordering Provider: ABEBA ULLOA Report Released Date/Time: Mar 07, 2024 10:34 AM Reporting Lab: [place] [facility] [address] [place] [address] Performing Lab: [place] [facility] [address] [place] [address] TSH 0.943 u[IU]/mL 0.47-5 Mar 18, 2024 12:29 PM [facility] VITAMIN D, 25-HYDROXY Specimen Type: SERUM No comment entered. Ordering Provider: ABEBA ULLOA MMLauryn Report Released Date/Time: Mar 07, 2024 10:34 AM Reporting Lab: [place] [facility] [address] [place] [address] Performing Lab: [place] [facility] [address] [place] [address] VITAMIN D, 25-HYDROXY 42.5 ng/mL 30-96 Mar 18, 2024 12:29 PM [facility] CBC Specimen Type: BLOOD No comment entered. Ordering Provider: ABEBA ULLOA MMLauryn Report Released Date/Time: Mar 07, 2024 10:34 AM Reporting Lab: [place] [facility] [address] [place] [address] Performing Lab: [place] [facility] [address] [place] [address] WBC 9.9 10*3/uL 3.6-11.2 RBC 5.67 10*6/uL 4.10-5.70 HGB 16.6 g/dL 13.1-16.8 HCT 49.5 H 38.2-48.4 MCV 87.3 fL 80.0-100.0 MCH 29.3 pg 27.0-34.0 MCHC 33.5 g/dL 33.0-36.0 PLT 265 10*3/uL 150-400 MPV 10.1 fL 7.5-11.2 RDW 14.1 11.8-15.1 LYMPHOCYTES, AUTO % 24.9 MONOCYTES, AUTO % 6.6 NEUTROPHILS, AUTO % 65.2 EOSINOPHILS, AUTO % 2.3 BASOPHILS, AUTO % 0.7 LYMPHOCYTES, ABSOLUTE 2.47 10*3/uL 0.77-4.50 MONOCYTES, ABSOLUTE 0.65 10*3/uL 0.19-0.8 NEUTROPHILS, ABSOLUTE 6.46 10*3/uL 2.10-8.00 EOSINOPHILS, ABSOLUTE 0.23 10*3/uL 0.00-0.60 BASOPHILS, ABSOLUTE 0.07 10*3/uL 0.00-0.20 IMMATURE GRANS, AUTO % 0.3 IMMATURE GRANS, AUTO ABS 0.03 10*3/uL 0.00-0.05 Vital Signs: All taken on the encounter date This section contains inpatient and outpatient Vital Signs collected on the date of the Encounter. Date/Time Temperature Pulse Blood Pressure Respiratory Rate SP02 Pain Height Weight Body Mass Index Source Mar 29, 2024 01:17 PM 98.3 78 138/81 20 97 0 71.0 255.2 36 [facility] Immunizations: All administered on the encounter date This section contains immunizations associated to the Encounter. Immunization Series Date Issued Reaction Comments TDAP Mar 29, 2024 Social History: Smoking Status (Most current) and Tobacco Use (All prior to encounter date) This section includes the most current, and the historical, smoking and tobacco- related health factors from the [place] facility where the Encounter took place. Current Smoking Status This section includes the most current smoking, or tobacco-related health factor, from the [place] facility where the Encounter took place. Date/Time Current Smoking Status Comment Facil ity Mar 29, 2024 01:00 PM VA-TOBACCO USER EVERY DAY [facility] Tobacco Use History This section includes a history of the smoking, or tobacco-related health factors, that were collected on or before the date of the Encounter. The data comes from the [place] facility where the Encounter took place. Date/Time Smoking Status/Tobacco Use Comment F acility Mar 29, 2024 01:00 PM VA-TOBACCO USE ADVICE [facility] Mar 29, 2024 01:00 PM VA-TOBACCO USE ACCOUNTS RECEIVABLE CLERK NO [facility] Mar 29, 2024 01:00 PM VA-TOBACCO USE MED NOTIFY PROVIDER Dr ulloa [facility] Mar 29, 2024 01:00 PM VA-TOBACCO USE WI 30 MIN OF WAKEUP [facility] Mar 29, 2024 01:00 PM VA-TOBACCO USER EVERY DAY [facility] Feb 03, 2023 08:30 AM VA-TOBACCO USE 30 YEARS OR MORE [facility] Feb 03, 2023 08:30 AM VA-TOBACCO USE ADVICE [facility] Feb 03, 2023 08:30 AM VA-TOBACCO USE ACCOUNTS RECEIVABLE CLERK NO [place] [facility] Feb 03, 2023 08:30 AM VA-TOBACCO USE MED NO [place] [facility] Feb 03, 2023 08:30 AM VA-TOBACCO USE WI 30 MIN OF WAKEUP [place] [facility] Feb 03, 2023 08:30 AM VA-TOBACCO USER EVERY DAY [facility] [place] [facility] Mar 04, 2022 09:00 AM VA-TOBACCO DOESNT USE WI 30 MIN WAKEUP [place] [place] [facility] Mar 04, 2022 09:00 AM VA-TOBACCO USE 30 YEARS OR MORE [facility] Mar 04, 2022 09:00 AM VA-TOBACCO USE ADVICE [place] [place] Mar 04, 2022 09:00 AM VA-TOBACCO USE ACCOUNTS RECEIVABLE CLERK NO [place] [place] [facility] Mar 04, 2022 09:00 AM VA-TOBACCO USE MED NO [place] [place] [facility] Mar 04, 2022 09:00 AM VA-TOBACCO USER EVERY DAY [facility] [place] Mar 05, 2021 10:00 AM VA-TOBACCO DOESNT USE WI 30 MIN WAKEUP [facility] [place] Mar 05, 2021 10:00 AM VA-TOBACCO USE 5 TO 15 YEARS [facility] Mar 05, 2021 10:00 AM VA-TOBACCO USE ADVICE [facility] [place] Mar 05, 2021 10:00 AM VA-TOBACCO USE ACCOUNTS RECEIVABLE CLERK NO [place] [facility] Mar 05, 2021 10:00 AM VA-TOBACCO USE MED NO [place] [facility] Mar 05, 2021 10:00 AM VA-TOBACCO USER EVERY DAY [place] [place] Dec 06, 2018 09:51 AM VA-TOBACCO USE 30 YEARS OR MORE [facility] Dec 06, 2018 09:51 AM VA-TOBACCO USE ADVICE [facility] [place] Dec 06, 2018 09:51 AM VA-TOBACCO USE ACCOUNTS RECEIVABLE CLERK NO [place] [place] Dec 06, 2018 09:51 AM VA-TOBACCO USE MED NO [place] Dec 06, 2018 09:51 AM VA-TOBACCO USE WI 30 MIN OF WAKEUP [place] [place] [facility] Dec 06, 2018 09:51 AM VA-TOBACCO USER EVERY DAY [facility] [place] Dec 08, 2017 01:22 PM CURRENT TOBACCO USER [place] [place] Dec 08, 2017 01:22 PM CURRENT TOBACCO US ER (NOT READY TO QUIT) [facility] Dec 08, 2017 01:22 PM TOBACCO CESSATION REFERRAL DECLINED [facility] Dec 08, 2017 01:22 PM TOBACCO MEDS OFFER ED BUT DECLINED [facility] Dec 08, 2017 01:22 PM TOBACCO USER OFFERED MEDS [facility] Feb 26, 2017 01:26 PM CURRENT TOBACCO USER [facility] Feb 26, 2017 01:26 PM CURRENT TOBACCO US ER (READY TO QUIT) [facility] Feb 26, 2017 01:26 PM TOBACCO CESSATION REFERRAL DECLINED [facility] Feb 26, 2017 01:26 PM TOBACCO CESSATION REFERRAL OFFERED [facility] Feb 26, 2017 01:26 PM TOBACCO MEDS INTERESTED [place] [facility] Feb 26, 2017 01:26 PM TOBACCO USER OFFERED MEDS [place] [facility] Sep 28, 2014 11:34 AM CURRENT TOBACCO USER [facility] Aug 16, 2013 12:51 PM CURRENT TOBACCO USER [facility] Aug 16, 2013 12:51 PM TOBACCO MEDS OFFER ED BUT DECLINED [facility] Aug 16, 2013 12:51 PM TOBACCO OFFERED PT MEDS (PROVIDER) [facility] Aug 16, 2013 12:[address] [facility] Encounter Notes: All associated encounter notes This section contains the clinical notes associated to the Encounter. Date/Time Encounter Note(s) Provider Source Mar 29, 2024 01:19 PM PRIMARY CARE PROGRESS NOTE: LOCAL TITLE: PRIMARY CARE CLINIC PROGRESS NOTE PB STANDARD TITLE: PRIMARY CARE PROGRESS NOTE DATE OF NOTE: MAR 29, 2024@13:19 ENTRY DATE: MAR 29, 2024@13:19:42 AUTHOR: ANAT ULLOA EXP COSIGNER: URGENCY: STATUS: COMPLETED SUBJECTIVE: HARI MESSINA is a 68 years old MALE. HPI: Presents to the clinic today for a periodic health maintenance visit. Last seen February 03, 2023. He reports contemplating quitting smoking. Non-VA Primary Care Provider none Specialty Services Cardiology, [place] FAMILY HX: Mother is , cancer? 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 ALCOHOL: occ DRUGS: no HX: BRANCH: [employer] . 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 OVERSEAS STATIONS/DEPLOYMENTS: no MAJOR ACCIDENTS OR INJURIES WHILE ON ACTIVE DUTY: SURGICAL HX: cholecystectomy tonsillectomy colonoscopy 02/18/21 + polyps Problem List 1) HTN - Hypertension (SNOMED CT 12388744) 2) Tobacco use (SNOMED CT 369588902) 3) Stuttering 4) Vitamin D deficiency 5) Adjustment disorder 6) Depression ([facility] 39669900) 7) Benign Prostatic Hypertrophy without Outflow Obstruction ([facility] 817812441) 8) Polyp of colon 9) Atrial flutter Active Outpatient Medications (including Supplies): Active Outpatient Medications Status 1) AMLODIPINE BESYLATE 10MG TAB TAKE ONE TABLET BY MOUTH ACTIVE ONCE A DAY FOR HEART/BLOOD PRESSURE 2) APIXABAN 5MG TAB TAKE ONE TABLET BY MOUTH TWICE A DAY ACTIVE FOR ANTICOAGULATION 3) CHOLECALCIF 50MCG (D3-2,000UNIT) TAB TAKE ONE TABLET ACTIVE BY MOUTH ONCE A DAY FOR VITAMIN D DEFICIENCY. 4) FLUTICAS 250/SALMETEROL 50 INHL DISK 60 INHALE 1 ACTIVE INHALATION ORAL INHALATION TWICE A DAY (OPEN DISKUS; CLICK ONLY ONCE; MAY INHALE TWICE TO COMPLETE DOSE; CLOSE WHEN FINISHED) RINSE MOUTH AND SPIT AFTER EACH USE. 5) HYDROCHLOROTHIAZIDE 25MG TAB TAKE ONE-HALF TABLET BY ACTIVE MOUTH ONCE A DAY FOR BLOOD PRESSURE 6) POTASSIUM CL 20MEQ SA TAB (DISPERSIBLE) TAKE ONE ACTIVE TABLET BY MOUTH ONCE A DAY FOR POTASSIUM SUPPLEMENTATION TAKE WITH FOOD 7) TAMSULOSIN HCL 0.4MG CAP TAKE ONE CAPSULE BY MOUTH ACTIVE EVERY EVENING APPROXIMATELY 30 MINUTES AFTER THE SAME MEAL EACH DAY (FOR PROSTATE) Allergies: LEVAQUIN Review of Systems: as per HPI and Systemic: Denies fatigue, fever, chills, or weight loss CV: Denies chest pain, palpitations Pulmonary: Denies hemoptysis, Shortness of breath, dyspnea on exertion GI: Denies constipation, bloody stools, diarrhea, indigestion, or n/v Ext: Denies any swelling Neuro: Denies slurred speech or dizziness Skin: Denies abnormal lesions; denies any new rashes PSYCH: Denies SI/HI; denies nightmares OBJECTIVE: Vital Signs Temperature: 98.3 F [36.8 C] (03/29/2024 13:17) Respiratory Rate: 20 (03/29/2024 13:17) Pulse Rate: 78 (03/29/2024 13:17) Blood Pressure: 138/81 (03/29/2024 13:17) HT: 71.0 in [180.3 cm] (03/29/2024 13:17) WT: 255.2 lb [115.76 kg] (03/29/2024 13:17) BMI: 35.7 97% (03/29/2024 13:17) Physical Exam General: NAD noted, A&Ox3, pleasant, appears stated age HEENT: NCAT, TM's clear, nares and oropharynx clear Neck: Supple with normal active ROM, without any lymphadenopathy Heart: RRR, no murmur, clicks, or rub Resp: Lungs CTA bilaterally, respirations even and unlabored Ext: No clubbing, cyanosis, edema or obvious deformity Skin: Warm, pink, and dry, no rashes Neuro: Grossly intact Psych: Affect normal, answers questions appropriately throughout visit A/P: ASSESSMENT and PLAN Health Maintenance: Labs reviewed with patient and printout given to patient. Discussed preventative health to include diet and exercise as well as immunizations. Tdap given today. Atrial flutter- on apixaban; rate controlled HTN - controlled on amlodipine and metoprolol Tobacco user- encouraged to quit; smoking cessation tips given Grief adjustment disorder/depression- reports doing well Colon polyps- colonoscopy in 2025 (or per pathology recommendation) Vitamin D deficiency- on supplement BPH- improved on tamsulosin CHENEY- has albuterol prn; encouraged him to quit smoking; PFTs were essentially normal. Normal myocardial perfusion study 07/2022 Stuttering- not significant Stable. Discussed medications with patient; med rec completed. Continue current regimen as prescribed by PCP and specialists. RTC as needed if developing any new or worsening symptoms. Please notify PACT with medication changes or for orders coordination as needed if seen by a specialist in the future. Will f/u with patient once updated labs / imaging / testing received; otherwise f/u as listed below. Follow-up: 12 months with fasting labs prior to appointment and/or as needed. Discussed with patient that in the event of community imaging / testing being ordered in the future, once the imaging / testing has been completed, please notify PACT of completion at outside facility if not called with results within 1 week by a [facility] PACT member; this is due to intermittent lapses in notification of imaging completion within [facility]. All questions answered; agrees to plan of care. Follow up as listed above, annually, and as needed. Keep all appointments. Medications Reconciled. See AVS given to . Time spent 30 minutes. /es/ Anat Ulloa MD [facility] Primary Care Signed: 03/29/2024 13:37 ANAT ULLOA [facility] Mar 29, 2024 01:00 PM PRIMARY CARE NURSING NOTE: LOCAL TITLE: PRIMARY CARE NURSING PROGRESS NOTE (TEXT) NURSING P STANDARD TITLE: PRIMARY CARE NURSING NOTE DATE OF NOTE: MAR 29, 2024@13:00 ENTRY DATE: MAR 29, 2024@13:00:28 AUTHOR: CHLOE HARRELL COSIGNER: URGENCY: STATUS: COMPLETED Established Patient HARI MESSINA IS A 68 YEAR OLD MALE BEING SEEN IN CLINIC MAR 29, 2024. REASON FOR VISIT: Dubberly here for yearly health exam, no complaints at this time Are you receiving care any where other than the [facility]? No HEALTH AND SURGICAL HISTORY: Does patient report using home oxygen? No CURRENT ACTIVE MEDICATIONS FOR REVIEW: Allergies/ADRs (Tool #5) FACILITY ALLERGY/ADR -------- No Remote Allergy/ADR Data available for this patient [facility]EVAQU[place] Med. Reconciliation (Tool #1) INCLUDED IN THIS LIST: Alphabetical list of active outpatient prescriptions dispensed from this [place] (local) and dispensed from another [place] or DoD facility (remote) as well as inpatient orders (local pending and active), local clinic medications, locally documented non-VA medications, and local prescriptions that have or been discontinued in the past 90 days. Non-VA Meds Last Documented On: Data not found NOTE The display of VA prescriptions dispensed from another [place] or DoD facility (remote) is limited to active outpatient prescription entries matched to National Drug File at the originating site and may not include some items such as investigational drugs, compounds, etc. NOT INCLUDED IN THIS LIST: Medications self-entered by the patient into personal health records (i.e. [employer]) are NOT included in this list. Non-VA medications documented outside this [place], remote inpatient orders (regardless of status) and remote clinic medications are NOT included in this list. The patient and provider must always discuss medications the patient is taking, regardless of where the medication was dispensed or obtained. OUTPT ALBUTEROL 90MCG (CFC-F) 200D ORAL INHL (Status = ) INHALE 2 PUFFS BY ORAL INHALATION EVERY 4 HOURS DIRECTED NEEDED FOR COPD .SHAKE WELL. RINSE MOUTHPIECE FREQUENTLY TO PREVENT CLOGGING. Rx# [id number] Last Released: 06/02/23 Qty/Days Supply: 09/29 Rx Expiration Date: 02/06/24 Refills Remainin Indication: FOR COPD OUTPT AMLODIPINE BESYLATE 10MG TAB (Status = Discontinued) TAKE ONE TABLET BY MOUTH ONCE A DAY FOR HEART/BLOOD PRESSURE Rx# [id number] Last Released: 12/02/23 Qty/Days Supply: Rx Expiration Date: 02/06/24 Refills Remainin OUTPT AMLODIPINE BESYLATE 10MG TAB (Status = Active) TAKE ONE TABLET BY MOUTH ONCE A DAY FOR HEART/BLOOD PRESSURE Rx# [id number] Last Released: 03/08/24 Qty/Days Supply: 90 Rx Expiration Date: 03/08/25 Refills Remainin OUTPT APIXABAN 5MG TAB (Status = Discontinued) TAKE ONE TABLET BY MOUTH TWICE A DAY FOR ANTICOAGULATION Rx# [id number] Last Released: 12/29/23 Qty/Days Supply: 180 Rx Expiration Date: 02/05/24 Refills Remainin OUTPT APIXABAN 5MG TAB (Status = Active) TAKE ONE TABLET BY MOUTH TWICE A DAY FOR ANTICOAGULATION Rx# [id number] Last Released: 03/29/24 Qty/Days Supply: 180 Rx Expiration Date: 01/20/25 Refills Remainin OUTPT CHOLECALCIF 50MCG (D3-2,000UNIT) TAB (Status = Discontinued) TAKE ONE TABLET BY MOUTH ONCE A DAY FOR VITAMIN D DEFICIENCY. Rx# [id number] Last Released: 11/30/23 Qty/Days Supply: 100 Rx Expiration Date: 02/06/24 Refills Remainin OUTPT CHOLECALCIF 50MCG (D3-2,000UNIT) TAB (Status = Active) TAKE ONE TABLET BY MOUTH ONCE A DAY FOR VITAMIN D DEFICIENCY. Rx# [id number] Last Released: 03/08/24 Qty/Days Supply: 100/90 Rx Expiration Date: 03/08/25 Refills Remainin OUTPT FLUTICAS 250/SALMETEROL 50 INHL DISK 60 (Status = Active) INHALE 1 INHALATION ORAL INHALATION TWICE A DAY (OPEN DISKUS; CLICK ONLY ONCE; MAY INHALE TWICE TO COMPLETE DOSE; CLOSE WHEN FINISHED) RINSE MOUTH AND SPIT AFTER EACH USE. Rx# [id number] Last Released: 01/14/24 Qty/Days Supply: 09/29 Rx Expiration Date: 06/12/24 Refills Remainin OUTPT FUROSEMIDE 20MG TAB (Status = ) TAKE ONE TABLET BY MOUTH ONCE A DAY Rx# [id number] Last Released: 01/22/24 Qty/Days Supply: Rx Expiration Date: 02/18/24 Refills Remainin OUTPT HYDROCHLOROTHIAZIDE 25MG TAB (Status = Discontinued) TAKE ONE-HALF TABLET BY MOUTH ONCE A DAY FOR BLOOD PRESSURE Rx# [id number] Last Released: 12/02/23 Qty Supply: Rx Expiration Date: 02/06/24 Refills Remainin OUTPT HYDROCHLOROTHIAZIDE 25MG TAB (Status = Active) TAKE ONE-HALF TABLET BY MOUTH ONCE A DAY FOR BLOOD PRESSURE Rx# [id number] Last Released: 03/09/24 Qty/Days Supply: Rx Expiration Date: 03/08/25 Refills Remainin OUTPT POTASSIUM CL 20MEQ SA TAB (DISPERSIBLE) (Status = Discontinued) TAKE ONE TABLET BY MOUTH ONCE A DAY FOR POTASSIUM SUPPLEMENTATION TAKE WITH FOOD Rx# [id number] Last Released: 12/02/23 Qty Supply: Rx Expiration Date: 02/06/24 Refills Remainin OUTPT POTASSIUM CL 20MEQ SA TAB (DISPERSIBLE) (Status = Active) TAKE ONE TABLET BY MOUTH ONCE A DAY FOR POTASSIUM SUPPLEMENTATION TAKE WITH FOOD Rx# [id number] Last Released: 03/10/24 Qty/Days Supply: Rx Expiration Date: 03/08/25 Refills Remainin OUTPT TAMSULOSIN HCL 0.4MG CAP (Status = Discontinued) TAKE ONE CAPSULE BY MOUTH EVERY EVENING APPROXIMATELY 30 MINUTES AFTER THE SAME MEAL EACH DAY (FOR PROSTATE) Rx# [id number] Last Released: 11/30/23 Qty/Days Supply: Rx Expiration Date: 02/06/24 Refills Remainin OUTPT TAMSULOSIN HCL 0.4MG CAP (Status = Active) TAKE ONE CAPSULE BY MOUTH EVERY EVENING APPROXIMATELY 30 MINUTES AFTER THE SAME MEAL EACH DAY (FOR PROSTATE) Rx# [id number] Last Released: 03/09/24 Qty/Days Supply: Rx Expiration Date: 03/08/25 Refills Remainin SUPPLIES PHARMACY TERMS AND POSSIBLE PATIENT ACTIONS INPT = [place] inpatient order IV = [place] intravenous medication OUTPT = [place] outpatient prescription PHARMACY POSSIBLE PATIENT TERMS EXPLANATION ACTIONS -------- -- ACTIVE A prescription that can be If you have refills, filled at the local [place] pharmacy. you may request a refill of this prescription from your [place] pharmacy. CLINIC A medication you received during If you have questions a visit to a [place] clinic or about this medication emergency department. contact your [place] healthcare team. DISCONTINUED A prescription your provider has Contact your [place] stopped. It is no longer healthcare team if you available to be sent to you or need more of this picked up at the [place] pharmacy medication. window. A prescription which is too old Contact your [facility] to fill. This does not refer to healthcare team if you the expiration date of the need more of this medication in the container. medication. NON-VA A medication that came from If this medication someplace other than a VA information is pharmacy. This may be a incorrect or out of prescription from either the VA date, please tell your or non VA providers that was VA healthcare team. filled outside the VA. Or, it may be an [id number] (OTC), herbal, dietary supplements or sample medication. ON HOLD An active prescription that will Contact your [facility] not be filled until pharmacy pharmacy when you need resolves the issue. more of this medication. PARKED An active prescription that will Contact your [facility] not be filled until the patient pharmacy when you need requests it. this medication. PENDING This prescription order has been If you have been sent to the pharmacy for review instructed to start and is not ready yet. this medication now, contact your [facility] pharmacy. SUSPENDED An active prescription that is Contact your [facility] not scheduled to be filled yet. pharmacy if you need You should receive it before this medication now. you run out. ====== Patient reports taking medications as ordered. Not using Fluticas inhaler or Furosemide IS PATIENT TAKING ANY OVER THE COUNTER MEDICATIONS, SUCH VITAMINS OR HERBAL SUPPLEMENTS, INCLUDING ANY MEDICATIONS PRESCRIBED BY ANOTHER PHYSICIAN? Yes, List: 81 mg Aspirinand Vit C ALLERGIES/ADVERSE REACTIONS: LEVAQUIN Does patient have any new allergies to report since last visit? NO VITALS: TEMPERATURE: 97.7 F [36.5 C] (02/03/2023 08:41) BP: 134/84 (02/03/2023 08:41) RESP: 18 (02/03/2023 08:41) PULSE: 70 (02/03/2023 08:41) HT: 71 in [180.3 cm] (02/03/2023 08:41) WT: 249.9 lb [113.35 kg] (02/03/2023 08:) BMI: 34.9 PAIN ASSESSMENT: (Most Recent Pain Score in Vitals Package: 0 (02/03/2023 08:41) ) The patient indicated that they and their close contacts have not traveled outside of the [place] in the past 21 days. The patient reports the following symptoms: No symptoms present The patient is not immunocompromised. The patient does not report having a history of Multi Drug Resistant Organism (MDRO) within the last five years. The patient does not report having been exposed to measles, chickenpox, or zoster in last 30 days. Patient reports no pain at this visit. Pain Score = 0. STRESS: Thank you for your service. Now let us serve you. At the [facility], we strive to provide you with exceptional health care that improves your health and well-being. Are you feeling sad, empty, or depressed? No Do you need to talk about things in your life that worry you or cause you stress? No Do you need to talk about personal problems, family problems, alcohol use, drug use, or mental or emotional illness? No SUICIDE SCREENING: The patient was asked, Over the past two weeks, how often have you been bothered by thoughts that you would be better off or of hurting yourself in some way? Not At All SPIRITUAL ASSESSMENT: Are there jew practices or spiritual concerns you want the weatherization director, your physician, and other health care team members to immediately know about? No Patient advised to call the clinic for any concerns, questions, or symptoms. Patient and/or caregiver verbalized understanding of plan of care. Alcohol Use Screen (AUDIT-C): Alcohol Screen: SCREEN FOR ALCOHOL (AUDIT-C) An alcohol screening test (AUDIT-C) was negative (score=2). 1. How often did you have a drink containing alcohol in the past year? Consider a drink to be a 12 ounce can or bottle of regular beer, 8 ounces of malt liquor, a 5 ounce glass of table wine, or a 1.5 ounce shot of liquor (like scotch, gin, or vodka). Two to four times a month 2. How many drinks containing alcohol did you have on a typical day when you were drinking in the past year? One or two drinks 3. How often did you have six or more drinks on one occasion in the past year? Never Depression Screening: Perform PHQ-2 A PHQ-2 screen was performed. The score was 0 which is a negative screen for depression. Over the past two weeks, how often have you been bothered by the following problems? 1. Little interest or pleasure in doing things Not at all 2. Feeling down, depressed, or hopeless Not at all Tobacco Use Screening: The patient uses tobacco every day. The patient uses tobacco within 30 minutes of waking up. The patient has been smoking or using tobacco for thirty years or more. Patient was advised to quit smoking and/or using tobacco. Discussion with patient included: - Quitting smoking or tobacco use is one of the most important things you can do to protect and improve your health and [facility] has the resources to support you. - Set a quit date when you are ready to quit. - Get support from your family and friends. - Review any past quit attempts- What helped? What didn't? - On the day you plan to quit, get rid of all cigarettes and tobacco products from your home, car or work. - Using a combination of behavioral counseling or other support strategies and FDA-approved cessation medications is the most effective way to ensure success in quitting. Patient was offered Behavioral Counseling and other support strategies to assist with quitting. Discussion with patient included: - Behavioral counseling or other support strategies greatly increases your chances of successfully quitting smoking or tobacco use by helping you develop a quit plan and providing support and other strategies to make behavioral changes to help you quit. - [facility] has a number of behavioral counseling options to help you with quitting, including: * Provide information about the facility smoking or tobacco use treatment options or clinics * [facility]'s national quitline, 4-154-KZUV-VET, with counseling available Thursday-Thursday The patient was not interested in receiving additional information about how to use the treatment options discussed. Patient was offered FDA-approved cessation medications. Discussion with patient included: - Medications for Nicotine replacement therapy such as the patch, gum or lozenge, and other medications such as varenicline or bupropion, can play an important role in the initial weeks and months after you quit smoking or tobacco use. - Medications help with cravings and withdrawal symptoms and they greatly increase your chances of successfully quitting. Yes, Provider notified of patient's request for medication assistance. Comment: Dr ulloa Homelessness/Food Insecurity Screen: In the past 2 months, have you been living in stable housing that you own, rent, or stay in as part of a household? Yes - Living in stable housing. Are you worried or concerned that in the next 2 months you may NOT have stable housing that you own, rent, or stay in as part of a household? No - Not worried about housing near future The reports the following: Within the past 12 months, you worried whether your food would run out before you got money to buy more. Never true Within the past 12 months, the food you bought just didn't last and you didn't have money to get more. Never true PTSD Screening: PC-PTSD-5 A PTSD screening test (PC-PTSD-5) was negative (score=0). IN THE PAST MONTH, have you ever had any experience that was so frightening, horrible or traumatic. For example: A serious accident or fire a physical or sexual assault or abuse An earthquake or flood A war Seeing someone be killed or seriously injured Having a loved one through homicide or suicide 1. Have you ever experienced this kind of event? NO 2. Had nightmares about the event(s) or thought about the event(s) when you did not want to? Response not required due to responses to other questions. 3. Tried hard not to think about the event(s) or went out of your way to avoid situations that reminded you of the event(s)? Response not required due to responses to other questions. 4. Been constantly on guard, watchful, or easily startled? Response not required due to responses to other questions. 5. [place] numb or detached from people, activities, or your surroundings? Response not required due to responses to other questions. 6. [place] guilty or unable to stop blaming yourself or others for the event(s) or any problems the event(s) may have caused? Response not required due to responses to other questions. Advanced Directive Screen/[facility]: ADVANCE DIRECTIVE SCREENING: I asked if the patient has an advance directive, and determined that: Patient does not have an Advance Directive. Patient was given form to update and return when completed. ADVANCE DIRECTIVE NOTIFICATION I did not provide the patient with written notification about advance directives because [place] has paperwork Level of understanding: MOVE Weight Management: Most recent BMI: 35.7. educated on health risk of obesity and treatment is offered. Participation in a weight management program was considered/offered for this patient based on the current BMI score. Patient declines participation in a weight management program. Weight Control/Nutrition Counseling: * The patient received the following counseling at this encounter: [facility] - PHP MAP: PERSONAL HEALTH PLAN INVENTORY & MAP 's Response: baron Cigarette Pack Year History: The patient smokes cigarettes. How many years have you smoked cigarettes? # of years: 55 Average number of packs/day over the entire time patient smoked: Packs/day: 0.5 Td / Tdap Immunization: Administered: TDAP Date Administered: Mar 29, 2024 13:00 [employer]am [employer]vel Operator: [employer] Lot: [id number] Exp Date: Apr 07, 2026 [facility]: [phone] Admin Route/Site: INTRAMUSCULAR/RIGHT DELTOID Dosage: 0.5mL Vaccine Information Statement(s): TDAP (TETANUS, DIPHTHERIA, PERTUSSIS) VACCINE VIS Apr 05, 2021 (UPPER SORBIAN) Order By: Policy Administered By: Chloe Harrell Vaccine Information Sheet (VIS) was given to the patient/caregiver, education regarding adverse reactions was discussed, as well as barriers to learning, if any, were acknowledged. /jose alejandro/ SUMIT LAIRD COVINGTONYue CBJESICA Signed: 03/29/2024 14:26 CHLOE HARRELL [facility]
--- OUTSIDE RECORDS SUMMARY | 2024-10-07 04:41 | XMS_ITS | Continuity of Care Document ---
Author Name [facility] Organization [facility] Care Team Providers Care Vp Platforms Name Role Phone [facility] Unavailable Unavailable Problems Combined list of problems from Department of Defense and Veterans Affairs facilities. It does not include entries that were removed or entered in error. Problem Status Onset Date Problem Type Date of Resolution Comments Source Adjustment disorder Active Condition [place] [facility] Atrial flutter Active Condition [place] [facility] Benign Prostatic Hypertrophy without Outflow Obstruction ([facility] 069200767) Active Condition [place] [facility] Depression ([facility] [id number]) Active Condition [place] [facility] HTN - Hypertension (SNOMED CT 35629087) Active Condition [facility] Polyp of colon Active Condition Apr 022020 Entered By: CARLYLE PEREZ Comment: next colonoscopy 2025 [place] [facility] Stuttering Active Condition [place] [facility] Tobacco use (SNOMED CT 295455978) Active Condition [facility] Vitamin D deficiency Active Condition [place] [facility] Ehrlichiosis Inactive Condition 03/04/2022 [place] [facility] Neck pain (SNOMED CT 48210573) Inactive Condition 03/04/2022 [facility] Need for Prophylactic Vaccination against Streptococcus Pneumoniae - Prophylacti Inactive Condition 10/18/2020 Sep 28, 2014 Entered By: BETZY OJEDA Comment: Left Deltoid, Lot #:[id number] [facility] Numbness of upper limb (SNOMED CT 154147216) Inactive Condition 03/04/2022 [facility] Tremor Inactive Condition 03/04/2022 [place] [facility] VACCIN FOR INFLUENZA - Need for prophylactic vaccination and inoculation, influe Inactive Condition 02/18/2017 [facility] VACCINATION FOR TD-DT - Tetanus-diphtheri a [td] [dt] (ICD-9-CM V06.5) Inactive Condition 10/18/2020 [facility] Diagnosis: ICD-10-CM Z13.5 Encounter for screening for eye and ear disorders Active Diagnosis [place] [facility] Diagnosis: ICD-10-CM I10 Essential (primary) hypertension [facility] Diagnosis: ICD-10-CM Z51.81 Encounter for therapeutic drug level monitoring Active Diagnosis [place] [facility] Diagnosis: ICD-10-CM Z23 Encounter for immunization Active Diagnosis [facility] Medications Combined list of outpatient medications from Department of Defense and Veterans Affairs facilities.Medications provided include 1) outpatient medications from the last 15 months, and 2) patient-reported medications. Medication Details Route Status Patient Instructions Prescription Expires Prescription Number Last Dispense Date Ordering Provider Order Date Order Qty Source ALBUTEROL SO4 90MCG/ACTUA T (CFC-F) INHL,ORAL,8 .5GM INHALE 2 PUFFS ORAL INHALATI ON EVERY 4 HOURS DIRECTED DYSPNEA SHAKE WELL. RINSE MOUTHPIE CE FREQUENT LY TO PREVENT CLOGGING . RESPIR ATORY (INHAL ATION) 06/27/2024 [id number] 4 CARLYLE PEREZ 2023 1 [facility] AMLODIPINE BESYLATE 10MG TAB TAKE ONE TABLET BY MOUTH ONCE A DAY FOR HEART/BL OOD PRESSURE ORAL ACTIVE 03/08/2025 [id number] 5 CARLYLE PEREZ [address] [place] [address] AMLODIPINE BESYLATE 10MG TAB TAKE ONE TABLET BY MOUTH ONCE A DAY FOR HEART/BL OOD PRESSURE ORAL DISCONT INUED 02/06/2024 [id number] 4 CARLYLE PEREZ [address] [place] [address] CB APIXABAN 5MG TAB TAKE ONE TABLET BY MOUTH TWICE A DAY FOR ANTICOAG ULATION ORAL ACTIVE 01/20/2025 [id number] 5 MILLA COLLINS 2023 180 [place] [facility] APIXABAN 5MG TAB TAKE ONE TABLET BY MOUTH TWICE A DAY FOR ANTICOAG ULATION ORAL DISCONT INUED 02/05/2024 [id number] 4 MILLA COLLINS 2022 180 [place] [facility] CHOLECALCIF MARIELLA 50MCG (2,000UNIT) TAB TAKE ONE TABLET BY MOUTH ONCE A DAY FOR VITAMIN D DEFICIEN CY. ORAL ACTIVE 03/08/2025 [id number] 5 [facility] 2023 100 [facility] CHOLECALCIF MARIELLA 50MCG (2,000UNIT) TAB TAKE ONE TABLET BY MOUTH ONCE A DAY FOR VITAMIN D DEFICIEN CY. ORAL DISCONT INUED 02/06/2024 [id number] 4 [facility] 2022 100 [facility] FLUTICASONE 250MCG/SALM ETEROL 50MCG INHL,ORAL,D ISKUS,60 INHALE 1 INHALATI ON ORAL INHALATI ON TWICE A DAY (OPEN DISKUS; CLICK ONLY ONCE; MAY INHALE TWICE TO COMPLETE DOSE; CLOSE WHEN FINISHED ) RINSE MOUTH AND SPIT AFTER EACH USE. RESPIR ATORY (INHAL ATION) 06/12/2024 [id number] 4 DATARSHOSHANA 2022 1 [place] [facility] FUROSEMIDE 20MG TAB TAKE ONE TABLET BY MOUTH ONCE A DAY ORAL 02/18/2024 [id number] 4 Bhavana STEVENSON USSAIN 2023 30 [place] [facility] HYDROCHLORO THIAZIDE 25MG TAB TAKE ONE-HALF TABLET BY MOUTH ONCE A DAY FOR BLOOD PRESSURE ORAL ACTIVE 03/08/2025 [id number] 5 [facility] 2023 46 [facility] HYDROCHLORO THIAZIDE 25MG TAB TAKE ONE-HALF TABLET BY MOUTH ONCE A DAY FOR BLOOD PRESSURE ORAL DISCONT INUED 02/06/2024 [id number] 4 [facility] 2022 46 [facility] POTASSIUM CHLORIDE 20MEQ TAB,SA (DISPERSIBL E) TAKE ONE TABLET BY MOUTH ONCE A DAY FOR POTASSIU M SUPPLEME NTATION TAKE WITH FOOD ORAL ACTIVE 03/08/2025 [id number] 5 [facility] 2023 90 [facility] POTASSIUM CHLORIDE 20MEQ TAB,SA (DISPERSIBL E) TAKE ONE TABLET BY MOUTH ONCE A DAY FOR TENZIN Bustamante SUPPLEME NTATION TAKE WITH FOOD ORAL DISCONT INUED 02/06/2024 [id number] 4 ANA, CARLYLE [address] [place] [address] [facility]OC TAMSULOSIN HCL 0.4MG CAP TAKE ONE CAPSULE BY MOUTH EVERY EVENING APPROXIM ATELY 30 MINUTES AFTER THE SAME MEAL EACH DAY (FOR PROSTATE ) ORAL ACTIVE 03/08/2025 [id number] 5 ANA, CARLYLE [address] [place] [address] [facility] TAMSULOSIN HCL 0.4MG CAP TAKE ONE CAPSULE BY MOUTH EVERY EVENING APPROXIM ATELY 30 MINUTES AFTER THE SAME MEAL EACH DAY (FOR PROSTATE ) ORAL DISCONT INUED 02/06/2024 [id number] 4 ANA, [facility] [address] [place] [address] [facility]OC Allergies, Adverse Reactions, Alerts Combined list of allergies from Department of Defense and Veterans Affairs facilities. It does not include entries that were removed or entered in error. Substance Category Reaction Severity Reaction type Status Date Reported Comments Source LEVAQUIN Propensity to adverse reactions to drug (finding) active 02/13/2017 [facility] Immunizations Combined list of available immunizations from the Department of Defense and Veterans Affairs facilities. Immunization Series Date Given Administered By Site Reaction Lot Number CVX Code Drug Conventional Machinist Status Comments Source TDAP 2023 ENRICO HARRELL RIGHT DELTO ID [id number] 115 complet [facility] INFLUENZA, INJECTABLE, QUADRIVALENT, PRESERVATIVE FREE 2022 JOSE MIGUEL NGUYEN RIGHT DELTO ID [id number] A 150 complet [facility] INFLUENZA, INJECTABLE, QUADRIVALENT, PRESERVATIVE FREE 2021 KAMILA MULLINS RIGHT DELTO ID [id number] 150 complet [facility] PNEUMOCOCCAL CONJUGATE PCV20, POLYSACCHARID E [id number] CONJUGATE, ADJUVANT, PF 2021 216 complet [facility] ZOSTER RECOMBINANT 2 2020 187 complet [facility] COVID-19 (MAME), VECTOR-NR, [id number], PF, 0.5 ML 1 2020 212 complet ed [facility] PNEUMOCOCCAL POLYSACCHARID E [id number] 2020 33 complet ed [facility] ZOSTER RECOMBINANT 1 2020 187 complet ed [facility] INFLUENZA, INJECTABLE, QUADRIVALENT, PRESERVATIVE FREE 2018 150 complet ed [facility] INFLUENZA, INJECTABLE, QUADRIVALENT, PRESERVATIVE FREE 2017 150 complet ed [facility] INFLUENZA, SEASONAL, INJECTABLE, PRESERVATIVE FREE 2016 140 complet ed Right Deltoid [place] [facility] INFLUENZA, UNSPECIFIED FORMULATION 2014 88 complet ed [facility] INFLUENZA, UNSPECIFIED FORMULATION 2012 88 complet ed [facility] TDAP 2012 115 complet ed Right Deltoid [facility] Results Combined list of recent chemistry, hematology and other laboratory results from Department of Defense and Veterans Affairs, ranging from 15 months to all on record, depending upon the facility. Order Name Results Value Reference Range Date Interpretation Specimen Comments Source HGA1C HEMOGLOBIN A1C/HEMOGLOBI N.TOTAL IN BLOOD 5.7 4.0 - 6.0 03/18 Specimen Type: BLOOD No comment entered. Ordering Provider: CARLYLE PEREZ Report Released Date/Time : Mar 07, 2024 10:34 AM Reporting Lab: [place] [facility] [address] [place] [address] Performin g Lab: [place] [facility] [address] [place] [address] [facility] CHOLESTEROL PANEL (PB) CHOLESTEROL [MASS/VOLUME] IN SERUM OR PLASMA 154 mg/dL 0 - 200 03/18 Specimen Type: PLASMA No comment entered. Ordering Provider: CARLYLE PEREZ Report Released Date/Time : Mar 07, 2024 10:34 AM Reporting Lab: [place] [facility] [address] [place] [address] Performin g Lab: [place] [facility] [address] [place] [address] [facility] CHOLESTEROL PANEL (PB) TRIGLYCERIDE [MASS/VOLUME] IN SERUM OR PLASMA 59 mg/dL 0 - 150 03/18 Specimen Type: PLASMA No comment entered. Ordering Provider: CARLYLE PEREZ Report Released Date/Time : Mar 07, 2024 10:34 AM Reporting Lab: [place] [facility] [address] [place] [address] Performin g Lab: [place] [facility] [address] [place] [address] 8 [facility] CHOLESTEROL PANEL (PB) CHOLESTEROL IN LDL [MASS/VOLUME] IN SERUM OR PLASMA BY CALCULATION 95.2 mg/dL 03/18 Specimen Type: PLASMA No comment entered. Ordering Provider: CARLYLE PEREZ Report Released Date/Time : Mar 07, 2024 10:34 AM Reporting Lab: [place] [facility] [address] [place] [address] Performin g Lab: [place] [facility] [address] [place] [address] [facility] CHOLESTEROL PANEL (PB) CHOLESTEROL IN HDL [MASS/VOLUME] IN SERUM OR PLASMA 47.0 mg/dL 40 03/18 H Specimen Type: PLASMA No comment entered. Ordering Provider: CARLYLE PEREZ Report Released Date/Time : Mar 07, 2024 10:34 AM Reporting Lab: [place] [facility] [address] [place] [address] 8 Performin g Lab: [place] [facility] [address] [place] [address] 8 [facility] CHOLESTEROL PANEL (PB) CHOLESTEROL IN HDL/CHOLESTER OL.TOTAL [MASS RATIO] IN SERUM OR PLASMA 30.5 25 03/18 Specimen Type: PLASMA No comment entered. Ordering Provider: CARLYLE PEERZ Report Released Date/Time : Mar 07, 2024 10:34 AM Reporting Lab: [place] [facility] [address] [place] [address] Performin g Lab: [place] [facility] [address] [place] [address] [facility] COMPREHENSI VE METABOLIC PANEL CREATININE [MASS/VOLUME] IN SERUM OR PLASMA 1.00 mg/dL 0.7 - 1.3 03/18 Specimen Type: PLASMA No comment entered. Ordering Provider: CARLYLE PEREZ Report Released Date/Time : Mar 07, 2024 10:34 AM Reporting Lab: [place] [facility] [address] [place] [address] Performin g Lab: [place] [facility] [address] [place] [address] [place] [facility] COMPREHENSI VE METABOLIC PANEL UREA NITROGEN [MASS/VOLUME] IN SERUM OR PLASMA 13 mg/dL 9 - 25 03/18 Specimen Type: PLASMA No comment entered. Ordering Provider: CARLYLE PEREZ Report Released Date/Time : Mar 07, 2024 10:34 AM Reporting Lab: [place] [facility] [address] [place] [address] 8 Performin g Lab: [place] [facility] [address] [place] [address] 8 [facility] COMPREHENSI VE METABOLIC PANEL GLUCOSE [MASS/VOLUME] IN SERUM OR PLASMA 98 mg/dL 72 - 99 03/18 Specimen Type: PLASMA No comment entered. Ordering Provider: CARLYLE PEREZ Report Released Date/Time : Mar 07, 2024 10:34 AM Reporting Lab: [place] [facility] [address] [place] [address] Performin g Lab: [place] [facility] [address] [place] [address] 8 [facility] COMPREHENSI VE METABOLIC PANEL SODIUM [MOLES/VOLUME ] IN SERUM OR PLASMA 140 meq/L 136 - 145 03/18 Specimen Type: PLASMA No comment entered. Ordering Provider: CARLYLE PEREZ Report Released Date/Time : Mar 07, 2024 10:34 AM Reporting Lab: [place] [facility] [address] [place] [address] 8 Performin g Lab: [place] [facility] [address] [place] [address] [facility] COMPREHENSI VE METABOLIC PANEL POTASSIUM [MOLES/VOLUME ] IN SERUM OR PLASMA 3.8 meq/L 3.5 - 5 03/18 Specimen Type: PLASMA No comment entered. Ordering Provider: CARLYLE PEREZ Report Released Date/Time : Mar 07, 2024 10:34 AM Reporting Lab: [place] [facility] [address] [place] [address] 8 Performin g Lab: [place] [facility] [address] [place] [address] [place] [facility] COMPREHENSI VE METABOLIC PANEL CHLORIDE [MOLES/VOLUME ] IN SERUM OR PLASMA 104 meq/L 98 - 107 03/18 Specimen Type: PLASMA No comment entered. Ordering Provider: CARLYLE PEREZ Report Released Date/Time : Mar 07, 2024 10:34 AM Reporting Lab: [place] [facility] [address] [place] [address] 8 Performin g Lab: [place] [facility] [address] [place] [address] [place] [facility] COMPREHENSI VE METABOLIC PANEL CARBON DIOXIDE, TOTAL [MOLES/VOLUME ] IN SERUM OR PLASMA 27 meq/L 22 - 31 03/18 Specimen Type: PLASMA No comment entered. Ordering Provider: CARLYLE PEREZ Report Released Date/Time : Mar 07, 2024 10:34 AM Reporting Lab: [place] [facility] [address] [place] [address] 8 Performin g Lab: [place] [facility] [address] [place] [address] 8 [facility] COMPREHENSI VE METABOLIC PANEL CALCIUM [MASS/VOLUME] IN SERUM OR PLASMA 9.2 mg/dL 8.4 - 10.4 03/18 Specimen Type: PLASMA No comment entered. Ordering Provider: CARLYLE PEREZ Report Released Date/Time : Mar 07, 2024 10:34 AM Reporting Lab: [place] [facility] [address] [place] [address] Performin g Lab: [place] [facility] [address] [place] [address] 8 [facility] COMPREHENSI VE METABOLIC PANEL PROTEIN [MASS/VOLUME] IN SERUM OR PLASMA 7.6 g/dL 6 - 8.6 03/18 Specimen Type: PLASMA No comment entered. Ordering Provider: CARLYLE PEREZ Report Released Date/Time : Mar 07, 2024 10:34 AM Reporting Lab: [place] [facility] [address] [place] [address] 8 Performin g Lab: [place] [facility] [address] [place] [address] [facility] COMPREHENSI VE METABOLIC PANEL ALBUMIN [MASS/VOLUME] IN SERUM OR PLASMA 4.2 g/dL 3.4 - 5 03/18 Specimen Type: PLASMA No comment entered. Ordering Provider: CARLYLE PEREZ Report Released Date/Time : Mar 07, 2024 10:34 AM Reporting Lab: [place] [facility] [address] [place] [address] 8 Performin g Lab: [place] [facility] [address] [place] [address] 8 [facility] COMPREHENSI VE METABOLIC PANEL BILIRUBIN.TOT AL [MASS/VOLUME] IN SERUM OR PLASMA 0.5 mg/dL 0.2 - 1.2 03/18 Specimen Type: PLASMA No comment entered. Ordering Provider: CARLYLE PEREZ Report Released Date/Time : Mar 07, 2024 10:34 AM Reporting Lab: [place] [facility] [address] [place] [address] 8 Performin g Lab: [place] [facility] [address] [place] [address] 8 [facility] COMPREHENSI VE METABOLIC PANEL ALKALINE PHOSPHATASE [ENZYMATIC ACTIVITY/VOLU ME] IN SERUM OR PLASMA 54 U/L 40 - 150 03/18 Specimen Type: PLASMA No comment entered. Ordering Provider: CARLYLE PEREZ Report Released Date/Time : Mar 07, 2024 10:34 AM Reporting Lab: [place] [facility] [address] [place] [address] Performin g Lab: [place] [facility] [address] [place] [address] [facility] COMPREHENSI VE METABOLIC PANEL ASPARTATE AMINOTRANSFER ASE [ENZYMATIC ACTIVITY/VOLU ME] IN SERUM OR PLASMA 21 U/L 5 - 34 03/18 Specimen Type: PLASMA No comment entered. Ordering Provider: CARLYLE PEREZ Report Released Date/Time : Mar 07, 2024 10:34 AM Reporting Lab: [place] [facility] [address] [place] [address] Performin g Lab: [place] [facility] [address] [place] [address] 8 [facility] COMPREHENSI VE METABOLIC PANEL ALANINE AMINOTRANSFER ASE [ENZYMATIC ACTIVITY/VOLU ME] IN SERUM OR PLASMA 30 U/L 8 - 40 03/18 Specimen Type: PLASMA No comment entered. Ordering Provider: CARLYLE PEREZ Report Released Date/Time : Mar 07, 2024 10:34 AM Reporting Lab: [place] [facility] [address] [place] [address] Performin g Lab: [place] [facility] [address] [place] [address] [facility] COMPREHENSI VE METABOLIC PANEL GLOMERULAR FILTRATION RATE/1.73 SQ M.PREDICTED [VOLUME RATE/AREA] IN SERUM, PLASMA OR BLOOD BY CREATININE-BA SED FORMULA (CKD-EPI 2020) 82 03/18 Specimen Type: PLASMA No comment entered. Ordering Provider: CARLYLE PEREZ Report Released Date/Time : Mar 07, 2024 10:34 AM Reporting Lab: [place] [facility] [address] [place] [address] Performin g Lab: [place] [facility] [address] [place] [address] [facility] CBC LEUKOCYTES [#/VOLUME] IN BLOOD BY AUTOMATED COUNT 9.9 10*3/u L 3.6 - 11.2 03/18 Specimen Type: BLOOD No comment entered. Ordering Provider: CARLYLE PEREZ Report Released Date/Time : Mar 07, 2024 10:34 AM Reporting Lab: [place] [facility] [address] [place] [address] Performin g Lab: [place] [facility] [address] [place] [address] 8 [facility] CBC ERYTHROCYTES [#/VOLUME] IN BLOOD BY AUTOMATED COUNT 5.67 10*6/u L 4.10 - 5.70 03/18 Specimen Type: BLOOD No comment entered. Ordering Provider: CARLYLE PEREZ Report Released Date/Time : Mar 07, 2024 10:34 AM Reporting Lab: [place] [facility] [address] [place] [address] Performin g Lab: [place] [facility] [address] [place] [address] [facility] CBC HEMOGLOBIN [MASS/VOLUME] IN BLOOD 16.6 g/dL 13.1 - 16.8 03/18 Specimen Type: BLOOD No comment entered. Ordering Provider: CARLYLE PEREZ Report Released Date/Time : Mar 07, 2024 10:34 AM Reporting Lab: [place] [facility] [address] [place] [address] Performin g Lab: [place] [facility] [address] [place] [address] [facility] CBC HEMATOCRIT [VOLUME FRACTION] OF BLOOD 49.5 38.2 - 48.4 03/18 H Specimen Type: BLOOD No comment entered. Ordering Provider: CARLYLE PREEZ Report Released Date/Time : Mar 07, 2024 10:34 AM Reporting Lab: [place] [facility] [address] [place] [address] 8 Performin g Lab: [place] [facility] [address] [place] [address] [facility] CBC MCV [ENTITIC VOLUME] BY AUTOMATED COUNT 87.3 fL 80.0 - 100.0 03/18 Specimen Type: BLOOD No comment entered. Ordering Provider: CARLYLE PEREZ Report Released Date/Time : Mar 07, 2024 10:34 AM Reporting Lab: [place] [facility] [address] [place] [address] 8 Performin g Lab: [place] [facility] [address] [place] [address] 8 [facility] CBC MCH [ENTITIC MASS] BY AUTOMATED COUNT 29.3 pg 27.0 - 34.0 03/18 Specimen Type: BLOOD No comment entered. Ordering Provider: CARLYLE PEREZ Report Released Date/Time : Mar 07, 2024 10:34 AM Reporting Lab: [place] [facility] [address] [place] [address] 8 Performin g Lab: [place] [facility] [address] [place] [address] 8 [facility] CBC MCHC [MASS/VOLUME] BY AUTOMATED COUNT 33.5 g/dL 33.0 - 36.0 03/18 Specimen Type: BLOOD No comment entered. Ordering Provider: CARLYLE PEREZ Report Released Date/Time : Mar 07, 2024 10:34 AM Reporting Lab: [place] [facility] [address] [place] [address] Performin g Lab: [place] [facility] [address] [place] [address] [facility] CBC PLATELETS [#/VOLUME] IN BLOOD BY AUTOMATED COUNT 265 10*3/u L 150 - 400 03/18 Specimen Type: BLOOD No comment entered. Ordering Provider: CARLYLE PEREZ Report Released Date/Time : Mar 07, 2024 10:34 AM Reporting Lab: [place] [facility] [address] [place] [address] Performin g Lab: [place] [facility] [address] [place] [address] [facility] CBC PLATELET MEAN VOLUME [ENTITIC VOLUME] IN BLOOD BY AUTOMATED COUNT 10.1 fL 7.5 - 11.2 03/18 Specimen Type: BLOOD No comment entered. Ordering Provider: CARLYLE PEREZ Report Released Date/Time : Mar 07, 2024 10:34 AM Reporting Lab: [place] [facility] [address] [place] [address] Performin g Lab: [place] [facility] [address] [place] [address] [facility] CBC ERYTHROCYTE DISTRIBUTION WIDTH [RATIO] BY AUTOMATED COUNT 14.1 11.8 - 15.1 03/18 Specimen Type: BLOOD No comment entered. Ordering Provider: CARLYLE PEREZ Report Released Date/Time : Mar 07, 2024 10:34 AM Reporting Lab: [place] [facility] [address] [place] [address] Performin g Lab: [place] [facility] [address] [place] [address] [facility] [facility] CBC LYMPHOCYTES/1 00 LEUKOCYTES IN BLOOD BY AUTOMATED COUNT 24.9 03/18 Specimen Type: BLOOD No comment entered. Ordering Provider: CARLYLE PEREZ Report Released Date/Time : Mar 07, 2024 10:34 AM Reporting Lab: [place] [facility] [address] [place] [address] Performin g Lab: [place] [facility] [address] [place] [address] 8 [facility] CBC MONOCYTES/100 LEUKOCYTES IN BLOOD BY AUTOMATED COUNT 6.6 03/18 Specimen Type: BLOOD No comment entered. Ordering Provider: CARLYLE PEREZ Report Released Date/Time : Mar 07, 2024 10:34 AM Reporting Lab: [place] [facility] [address] [place] [address] Performin g Lab: [place] [facility] [address] [place] [address] [facility] CBC NEUTROPHILS/1 00 LEUKOCYTES IN BLOOD BY AUTOMATED COUNT 65.2 03/18 Specimen Type: BLOOD No comment entered. Ordering Provider: CARLYLE PEREZ Report Released Date/Time : Mar 07, 2024 10:34 AM Reporting Lab: [place] [facility] [address] [place] [address] Performin g Lab: [place] [facility] [address] [place] [address] [facility] CBC EOSINOPHILS/1 00 LEUKOCYTES IN BLOOD BY AUTOMATED COUNT 2.3 03/18 Specimen Type: BLOOD No comment entered. Ordering Provider: CARLYLE PEREZ Report Released Date/Time : Mar 07, 2024 10:34 AM Reporting Lab: [place] [facility] [address] [place] [address] Performin g Lab: [place] [facility] [address] [place] [address] [facility] CBC BASOPHILS/100 LEUKOCYTES IN BLOOD BY AUTOMATED COUNT 0.7 03/18 Specimen Type: BLOOD No comment entered. Ordering Provider: CARLYLE PEREZ Report Released Date/Time : Mar 07, 2024 10:34 AM Reporting Lab: [place] [facility] [address] [place] [address] Performin g Lab: [place] [facility] [address] [place] [address] [facility] CBC LYMPHOCYTES [#/VOLUME] IN BLOOD BY AUTOMATED COUNT 2.47 10*3/u L 0.77 - 4.50 03/18 Specimen Type: BLOOD No comment entered. Ordering Provider: CARLYLE PEREZ Report Released Date/Time : Mar 07, 2024 10:34 AM Reporting Lab: [place] [facility] [address] [place] [address] Performin g Lab: [place] [facility] [address] [place] [address] 8 [facility] CBC MONOCYTES [#/VOLUME] IN BLOOD BY AUTOMATED COUNT 0.65 10*3/u L 0.19 - 0.8 03/18 Specimen Type: BLOOD No comment entered. Ordering Provider: CARLYLE PEREZ Report Released Date/Time : Mar 07, 2024 10:34 AM Reporting Lab: [place] [facility] [address] [place] [address] Performin g Lab: [place] [facility] [address] [place] [address] [facility] CBC NEUTROPHILS [#/VOLUME] IN BLOOD BY AUTOMATED COUNT 6.46 10*3/u L 2.10 - 8.00 03/18 Specimen Type: BLOOD No comment entered. Ordering Provider: CARLYLE PEREZ Report Released Date/Time : Mar 07, 2024 10:34 AM Reporting Lab: [place] [facility] [address] [place] [address] Performin g Lab: [place] [facility] [address] [place] [address] 8 [facility] CBC EOSINOPHILS [#/VOLUME] IN BLOOD BY AUTOMATED COUNT 0.23 10*3/u L 0.00 - 0.60 03/18 Specimen Type: BLOOD No comment entered. Ordering Provider: CARLYLE PEREZ Report Released Date/Time : Mar 07, 2024 10:34 AM Reporting Lab: [place] [facility] [address] [place] [address] Performin g Lab: [place] [facility] [address] [place] [address] [facility] CBC BASOPHILS [#/VOLUME] IN BLOOD BY AUTOMATED COUNT 0.07 10*3/u L 0.00 - 0.20 03/18 Specimen Type: BLOOD No comment entered. Ordering Provider: CARLYLE PEREZ Report Released Date/Time : Mar 07, 2024 10:34 AM Reporting Lab: [place] [facility] [address] [place] [address] Performin g Lab: [place] [facility] [address] [place] [address] 8 [facility] CBC IMMATURE GRANULOCYTES/ 100 LEUKOCYTES IN BLOOD BY AUTOMATED COUNT 0.3 03/18 Specimen Type: BLOOD No comment entered. Ordering Provider: CARLYLE PEREZ Report Released Date/Time : Mar 07, 2024 10:34 AM Reporting Lab: [place] [facility] [address] [place] [address] Performin g Lab: [place] [facility] [address] [place] [address] 8 [facility] CBC IMMATURE GRANULOCYTES [#/VOLUME] IN BLOOD BY AUTOMATED COUNT 0.03 10*3/u L 0.00 - 0.05 03/18 Specimen Type: BLOOD No comment entered. Ordering Provider: CARLYLE PEREZ Report Released Date/Time : Mar 07, 2024 10:34 AM Reporting Lab: [place] [facility] [address] [place] [address] Performin g Lab: [place] [facility] [address] [place] [address] [facility] PROST. SPECIFIC AG.(PB-STL) PROSTATE SPECIFIC AG [MASS/VOLUME] IN SERUM OR PLASMA 0.61 ng/mL 0 - 4 03/18 Specimen Type: SERUM No comment entered. Ordering Provider: CARLYLE PEREZ Report Released Date/Time : Mar 07, 2024 10:34 AM Reporting Lab: [place] [facility] [address] [place] [address] 8 Performin g Lab: [place] [facility] [address] [place] [address] [facility] TSH (MA-PB) THYROTROPIN [UNITS/VOLUME ] IN SERUM OR PLASMA 0.943 u[IU]/ mL 0.47 - 5 03/18 Specimen Type: SERUM No comment entered. Ordering Provider: CARLYLE PEREZ Report Released Date/Time : Mar 07, 2024 10:34 AM Reporting Lab: [place] [facility] [address] [place] [address] 8 Performin g Lab: [place] [facility] [address] [place] [address] [facility] VITAMIN D, 25-HYDROXY 25-HYDROXYVIT DOLL D3 [MASS/VOLUME] IN SERUM OR PLASMA 42.5 ng/mL 30 - 96 03/18 Specimen Type: SERUM No comment entered. Ordering Provider: CARLYLE PEREZ Report Released Date/Time : Mar 07, 2024 10:34 AM Reporting Lab: [place] [facility] [address] [place] [address] 8 Performin g Lab: [place] [facility] [address] [place] [address] 8 [facility] PLT PLATELETS [#/VOLUME] IN BLOOD BY AUTOMATED COUNT 259 10*3/u L 150 - 400 01/18 Specimen Type: BLOOD No comment entered. Ordering Provider: MILLA COLLINS Report Released Date/Time : Aug 04, 2023 03:28 PM Reporting Lab: [place] [facility] [address] [place] [address] Performin g Lab: [place] [facility] [address] [place] [address] [place] [facility] H&H (PB-MA) HEMOGLOBIN [MASS/VOLUME] IN BLOOD 15.9 g/dL 13.1 - 16.8 01/18 Specimen Type: BLOOD No comment entered. Ordering Provider: MILLA COLLINS Report Released Date/Time : Aug 04, 2023 03:28 PM Reporting Lab: [place] [facility] [address] [place] [address] Performin g Lab: [place] [facility] [address] [place] [address] [place] [facility] H&H (PB-MA) HEMATOCRIT [VOLUME FRACTION] OF BLOOD 47.0 38.2 - 48.4 01/18 Specimen Type: BLOOD No comment entered. Ordering Provider: MILLA COLLINS Report Released Date/Time : Aug 04, 2023 03:28 PM Reporting Lab: [place] [facility] [address] [place] [address] Performin g Lab: [place] [facility] [address] [place] [address] [place] [facility] CREATININE( EGFR) CREATININE [MASS/VOLUME] IN SERUM OR PLASMA 1.11 mg/dL 0.7 - 1.3 01/18 Specimen Type: PLASMA No comment entered. Ordering Provider: MILLA COLLINS Report Released Date/Time : Aug 04, 2023 03:28 PM Reporting Lab: [place] [facility] [address] [place] [address] Performin g Lab: [place] [facility] [address] [place] [address] [place] [facility] CREATININE( EGFR) GLOMERULAR FILTRATION RATE/1.73 SQ M.PREDICTED [VOLUME RATE/AREA] IN SERUM, PLASMA OR BLOOD BY CREATININE-BA SED FORMULA (CKD-EPI 2020) 73 01/18 Specimen Type: PLASMA No comment entered. Ordering Provider: MILLA COLLINS Report Released Date/Time : Aug 04, 2023 03:28 PM Reporting Lab: [place] [facility] [address] [place] [address] Performin g Lab: [place] [facility] [address] [place] [address] [place] [facility] Vital Signs Combined list of inpatient and outpatient Vital Signs from Department of [facility] and [facility] Affairs, ranging from 12 months to all on record, depending upon the facility. Vital Sign Value Date Comments Source SYSTOLIC BLOOD PRESSURE 138 03/29/2024 13:17:00 [facility] DIASTOLIC BLOOD PRESSURE 81 03/29/2024 13:17:00 [facility] PULSE OXIMETRY 97 03/29/2024 13:17:00 [facility] WEIGHT 255.2 03/29/2024 13:17:00 [facility] BMI 36 kg/m2 03/29/2024 13:17:00 [facility] PAIN 0 03/29/2024 13:17:00 [facility] HEIGHT 71.0 03/29/2024 13:17:00 [facility] TEMPERATURE 98.3 03/29/2024 13:17:00 [facility] PULSE 78 03/29/2024 13:17:00 [facility] RESPIRATION 20 03/29/2024 13:17:00 [facility] Encounters Combined list of: 1) Encounters from Department of [facility] Affairs facilities going backup to the last 18 months, not all [place] inpatient encounters are included; 2) Encounters from the Department of [facility] facilities going backup to 280 months. Location Location Details Encounter Type Encounter Number Reason For Visit Attending Provider ADM Date DC Date Status Disposition Source [facility] Outpatient Encounter [id number] 04[facility]21 [facility] [id number] 04/21 [facility] Outpatient Encounter [id number] Nick NGUYEN 04/21 [facility] Outpatient Encounter [id number] Nick NGUYEN 04/21 [facility] IMMUNIZATI ON ADMIN [id number] Diagnos is: ICD-10- CM Z23 Encount er for immuniz Chin Hercules 08/04 [facility] PHONE CALL 11-20 MIN [id number] Diagnos is: ICD-10- CM Z51.81 Encount er for therape utic drug level monitor MILLA Mojica 08/04 [place] [facility] Outpatient Encounter [id number] 11/30 [facility] N [facility] Outpatient Encounter [id number] 01/18 [facility] [place] [facility] MTMS BY PHARM EST 15 MIN [id number] Diagnos is: ICD-10- CM Z51.81 Encount er for therape utic drug level monitor MILLA Mojica 01/19 [place] [facility] En[facility] [id number] MARICARMEN SWAIN 03/07 [place] [facility] Outpatient Encounter [id number] 03/07 [place] [facility] OFFICE O/P EST MOD 30 MIN [id number] Diagnos is: ICD-10- CM I10 Essenti al (primar y) hyperte Nick Mehta 03/29 [facility] R[facility] DETCJ/MNTR DS STAFF [id number] Diagnos is: ICD-10- CM Z13.5 Encount er for screeni ng for eye and ear disorde rs IONA MORSE 03/29 [facility] [place] [facility] IMG RTA DETC/MNTR DS PHY/QHP [id number] Diagnos is: ICD-10- CM Z13.5 Encount er for screeni ng for eye and ear disorde rs MAXIME ARCHIBALD 03/29 [place] [facility] Social History Combined list of available smoking, tobacco, and other social history from Department of Defense and Veterans Affairs facilities. Social History Type Response Date Comment Sourc e Tobacco smoking status NHIS VA-TOBACCO USER EVERY DAY 03/29/2024 [place] [facility] History of tobacco use VA-TOBACCO USE 30 YEARS OR MORE 03/29/2024 [place] [facility] History of tobacco use VA-TOBACCO USER E VERY DAY 02/03/2023 [facility] History of tobacco use VA-TOBACCO USER E VERY DAY 03/04/2022 [place] [facility] History of tobacco use VA-TOBACCO USER E VERY DAY 03/05/2021 [place] [facility] History of tobacco use VA-TOBACCO USER E VERY DAY 12/06/2018 [place] [facility] History of tobacco use TOBACCO USER OFFE RED MEDS 12/08/2017 [place] [facility] History of tobacco use TOBACCO USER OFFE RED MEDS 02/26/2017 [facility] History of tobacco use CURRENT TOBACCO USER 09/28/2014 [facility] History of tobacco use TOBACCO OFFERED P T MEDS (PROVIDER) 08/16/2013 [place] [facility] Plan of Care List of future care activities from Department of Veterans Affairs facilities. Additional future care activities may be listed in the Assessment and Plan section. Date/Time Care Activity Care Activity Detail Facili ty 10/12/2024 AMBULATORY - MEDICINE AM[facility]UL[facility] [place] [facility] 03/14/2025 AMBULATORY - MEDICINE [facility] [place] [facility] [facility] 03/21/2025 AMBULATORY - MEDICINE AMBULATORY - MEDICI NE [facility]
[2024-10-07] MEDS: methylPREDNISolone sod succ 40 mg/mL INJ IVP ×3 (05:41→23:10)
--- NOTE | 2024-10-07 05:59 | PC.NURSE ---
this nurse noticed med order was put under the wrong physician when i was having to reverify amiodarone every hour. KRYSTINA Crowley called CSU to ask about having to reverify this medication and that it was not normal. Amiodarone was started 2205. Correct order is put in.
--- NOTE | 2024-10-07 07:01 | PC.NURSE ---
this nurse contacted hospitalist around @2200 about pt HR being 130s. aware, no further orders given. I called again around @0445 about Pt HR still being in 120s-130s, MD aware. No further orders given.
[2024-10-07] MEDS: amiodarone 50 mg/mL SDV 3 mL 150 MG IVP (08:28)
[2024-10-07] MEDS: aspirin 81 mg EC Tablet PO (08:28)
[2024-10-07] MEDS: tamsulosin 0.4 mg Capsule PO (08:28)
[2024-10-07] MEDS: budesonide 0.5 mg/2 mL Neb INHALATION (08:28)
[2024-10-07] MEDS: apixaban 5 mg Tablet PO ×2 (08:28→18:10)
[2024-10-07] MEDS: metoprolol tartrate 25 mg Tablet PO ×2 (08:28→20:09)
[2024-10-07] MEDS: potassium chloride ER 20 mEq Tablet 40 MEQ PO (12:38)
--- NOTE | 2024-10-07 13:24 | W.PM.OPSUD ---
Surgery/Procedure H&P Update DATE OF PROCEDURE: October 07, 2024 DATE H&P PERFORMED: 10/07/24 H&P UPDATE INFORMATION: I have reviewed H&P completed within last 30 days, I have examined patient prior to procedure and No changes to prior documentation CHANGES TO PREVIOUS DOCUMENTATION: Patient confirms has not missed any dosese of eliquis over the last atleast 1 month likely several months. PREOP DIAGNOSIS: Atrial fibrillation with RVR PRIMARY INDICATION FOR PROCEDURE: Atrial fibrillation with RVR PLANNED PROCEDURE: Cardioversion Anesthesia team available for sedation PHYSICAL EXAM: alert, oriented x 3 and clear to auscultation bilaterally OTHER PERTINENT EXAM FINDINGS: Irregularly irregular, tachcyardic.
--- NOTE | 2024-10-07 13:26 | P.CONIM_ITS ---
<Statement entered by Earnestine James MD - 10/07/24 19:10> Patient was evaluated and cared for in conjunction with an advanced practice practitioner. I personally examined the patient and reviewed the chart and all pertinent data including imaging, telemetry, and laboratory results. I discussed the patient in detail with the advanced practice practitioner. Please see their note for complete H&P testing result and agreed upon plan of care for the patient. 69-year-old male past medical history significant for hypertension history of atrial fibrillation presented with A-fib with RVR difficult to control despite of antiarrhythmics and combination of calcium channel bola and digoxin GENERAL: Patient is alert, awake and oriented x3. HEART: Irregularly irregular S1 and S2. No murmur, rub or gallop. LUNGS: Clear to auscultate bilaterally. CENTRAL NERVOUS SYSTEM: Grossly nonfocal. EXTREMITIES: Lower extremities with out edema bilaterally. Assessment and plan Atrial fibrillation with rapid ventricular response difficult Hypertension Proceed with cardioversion Will switch him to p.o. amiodarone once cardioverted over next 24 hours Continue anticoagulation Providers/Reason For Consult 2 Consulting Physician/Specialty*: Earnestine James MD Reason for Consult*: A-fib RVR Requesting Physician: Dr. Grimes Attending Physician: Alejandro Grimes MD Primary Care Provider: Anat Ulloa MD History of Present Illness History of Present Illness This is a very pleasant 69-year-old gentleman past medical history of obesity, hypertension, diastolic CHF, A-fib, chronically anticoagulated on Eliquis 5 mg BID who presented to [facility] due to palpitations and shortness of breath. Denies any chest pain at this time. He states that for the past few days his heart rates have been in the 140s at home. He has been taking his home metoprol as prescribed. He was given Cardizem push as well as placed on a drip, amidarone bolus and drip without good response. HR is still upper 130s and at times into the 140s. He is asymptomatic at this time. BP has been stable. Potassium was slightly low at 3.4 this morning. Patient states that he has not missed any doses of Eliquis in at least 1 months, but likely several months, and he has been on this for 4 years. Review of Systems 2 Narrative: Consitutional: denies fever, chills, body aches, or changes in appetite, denies abnormal weight loss Eyes: Denies changes in vision Card: Denies chest pain, palpitations, irregular heart rhythm, edema, syncope, shortness of breath, orthopnea, leg pain with exertion Resp: Denies shortness of breath, denies hemoptysis, denies cough GI: denies abdominal pain, denies nausea or voimting, denies blood in stool : denies blood in urine, denies dysuria Musc: Denies extremity pain, denies limited range of motion or recent injury Skin: Denies rash, lesions, or wounds, denies changes to skin color Neuro: Denies nubmness in extremities, h/a, s/s of stroke Markus: Denies easy bruiding/bleeding Medications/Allergies Home Medications ?Medication ?Instructions ?Recorded ?Confirmed ?Last Taken ?Type amlodipine 10 mg tablet 10 mg PO DAILY 01/18/2102/2210/06/24 History cholecalciferol (vitamin D3) 50 50 mcg PO DAILY 10/06/24 10/06/24 History mcg (2,000 unit) capsule potassium chloride 20 mEq 20 meq PO DAILY 03/27/2202/2210/06/24 History tablet,extended release tamsulosin 0.4 mg capsule (Flomax) 0.4 mg PO DAILY 10/06/24 10/06/24 History apixaban 5 mg tablet 5 mg PO BID 05/15/22 5 10/06/24 History ascorbic acid (vitamin C) 500 mg 500 mg PO DAILY 05/1510/06/24 10/05/24 History capsule aspirin 81 mg tablet,delayed 81 mg PO DAILY 05/15/22 0 10/06/24 10/06/24 History release (Adult Aspirin Regimen) furosemide 20 mg tablet (Lasix) 20 mg PO DAILY #30 tab s 01/19/24 10/06/24 10/06/24 Rx hydrochlorothiazide 25 mg tablet 12.5 mg PO DAILY 02/2210/06/24 10/06/24 History Allergies Allergy/AdvReac Type Severity Reaction Status Date / Time levofloxacin (From [employer]) Allergy Unknown Unknown Verified 01/19/24 13:01 Current Medications Generic Name Dose Route Start Last Admin Trade Name Freq PRN Reason Stop Dose Admin Apixaban 5 mg 10/06/24 18:32 10/07/24 08:28 Apixaban 5 Mg Tablet PO 5 mg BID BAILEY Administration Aspirin 81 mg 10/07/24 09:00 10/07/24 08:28 Aspirin 81 Mg Ec Tablet PO 81 mg DAILY BAILEY Administration Budesonide 0.5 mg 10/06/24 20:00 10/07/24 08:28 Budesonide 0.5 Mg/2 Ml Neb INHALATION 0.5 mg BID.RESPIRATORY BAILEY Administration Ceftriaxone Sodium 1,000 mg 10/06/24 16:15 10/06/24 17:09 Ceftriaxone 1,000 Mg Sdv IVP 1,000 mg Q24H BAILEY Administration Protocol Azithromycin 500 mg/ Sodium 250 mls @ 250 mls/hr 10/06/24 16:15 10/06/24 18:49 Chloride IV Infused Q24H BAILEY Infusion Protocol Amiodarone HCl/Dextrose 360 mg in 200 mls @ 0 mls/hr 10/07/24 05:56 10/07/24 06:03 Nexterone IV 0.5 mg/min .Q0M BAILEY 16.67 mls/hr Administration Protocol Per Protocol Levalbuterol HCl 0.63 mg 10/06/24 16:20 10/06/24 16:28 Levalbuterol 0.63 Mg/3 Ml Neb INHALATION 0.63 mg Q4H.RESPIRATORY PRN Administration SHORTNESS OF BREATH Methylprednisolone Sodium Succinate 40 mg 10/07/24 06:00 10/07/24 05:41 Methylprednisolone Sod Succ 40 Mg/Ml Inj IVP 40 mg Q8H BAILEY Administration Metoprolol Tartrate 25 mg 10/07/24 08:00 10/07/24 08:28 Metoprolol Tartrate 25 Mg Tablet PO 25 mg Q12H BAILEY Administration Pantoprazole Sodium 40 mg 10/06/24 16:00 10/06/24 17:07 Pantoprazole 40 Mg Sdv IVP 40 mg Q24H BAILEY Administration Tamsulosin HCl 0.4 mg 10/07/24 09:00 10/07/24 08:28 Tamsulosin 0.4 Mg Capsule PO 0.4 mg DAILY BAILEY Administration PFSH Acute 2 PFSH: Medical History Atrial fibrillation Depression Hypertension Surgical History History of cholecystectomy 1991 Family History Other Cancer Denies family history of Diabetes CAD (coronary artery disease) Hypertension Stroke Social History Smoking and tobacco/nicotine status: current every day tobacco/nicotine user cigarettes Packs smoked per day: 2 Years cigarettes smoked: 50 [ Other cigarette details: started at age 16] Quit status (tobacco/nicotine): considering quitting Alcohol intake: current Alcohol intake frequency: few times a month Substance/Drug Use: never Lives independently: Yes Marital status: / Vitals/I&O/Wt Last Vital Signs Temp 98.6 F 10/06/24 12:34 Pulse 136 H 10/07/24 12:35 Resp 28 H 10/07/24 12:35 BP 141/111 10/07/24 12:35 Pulse Ox 93 10/07/24 12:35 O2 Del Method Nasal Cannula 10/07/24 08:28 O2 Flow Rate 3 10/07/24 08:28 10/06/24 10/07/24 10/07/24 22:59 06:59 14:59 Intake Total 1050 / 1061.916 131.138 / 1193.054 0 / 0 Balance 1050 / 1061.916 131.138 / 1193.054 0 / 0 Weight last 48 hrs Weight 253 lb 8 oz Weight 260 lb Physical Exam 2 Narrative: General: No apparent distress, healthy appearing, well nourished HENMT: normoceophalic Muskuloskeletal: Full ROM Lymphatic: no lymphedema noted Respiratory: Normal respiratory effort, clear to auscultation bilaterally throughout all lung avalos, no use of accessory muscles Cardio: No JVD, tachycardic, irregularly irregular rhythm, S1 S2 normal, no murmurs, peripheral pulses 2+ radial palpated bilaterally GI: Normal to inspection, nondistended Extremities: Full ROM, normal, normal capillary refill, no cyanosis or edema Neuro: Alert and oriented x4, no focal motor deficits Psych: Affect normal, denies suicidal ideation, mental status grossly normal Skin: No rashes or lesions noted, no wounds Data 10/07/24:30 10/07/24 02:30 Micro: Microbiology 10/06/24 18:52 Blood Culture - Preliminary Blood SPECIMEN COLLECTED 10/06/24 18:47 Blood Culture - Preliminary Blood SPECIMEN COLLECTED A&P Assessment and plan (1) Atrial fibrillation: Qualifiers: Atrial fibrillation type: paroxysmal Qualified Code(s): I48.0 - Paroxysmal atrial fibrillation (2) Atrial fibrillation with rapid ventricular response: (3) Dyspnea on exertion: Plan Patient has had several different antiarrhythmics given to him including digoxin and amiodarone without success of conversion or rate control. At this time a cardioversion is indicated. Patient states that he has not missed a dose for at least 1 month of his full dose Eliquis 5 mg twice daily but more likely more than this and states he has been taking it consistently for at least 4 years. This was discussed with the patient along with the risks and benefits by Dr. James. He fully agrees to proceed. Patient has been started on Metoprolol 25 q12. Continue Eliquis 5 mg BID, continue amiodarone drip. Will most likely transition to oral amiodarone in the near future. Dr. James requested Dr. Calzada perform the cardioversion. Thank you, Dr. Grimes, for allowing us to care for this very pleasant 69 year old gentleman. PDMP PDMP Reviewed: Not Reviewed Coding Level of Care Code Acute Code for Chg Fwd Diagnoses Paroxysmal atrial fibrillation I48.0 Atrial fibrillation type: paroxysmal Atrial fibrillation with rapid ventricular response I48.91 Dyspnea on exertion R06.00
--- NOTE | 2024-10-07 13:36 | ANES.PREANE2 ---
Pre-Anesthetic Assessment Height/Weight: Height 5 ft 11 in Weight 253 lb 8 oz Temp Pulse Resp BP Pulse Ox O2 Del Method O2 Flow Rate 98.6 F 136 H 28 H 141/111 93 Nasal Cannula 3 10/06/24 12:34 10/07/24 12:35 10/07/24 12:35 10/07/24 12:35 10/07/24 12:35 10/07/24 08:28 10/07/24 08:28 Preop Diagnosis: Atrial fibrillation with RVR Was Beta Markus taken within 24 hours: N/A Was Clonidine taken within 24 hours: N/A Social Tobacco and No alcohol Exam alert, oriented x 3 and clear to auscultation bilaterally Airway Submandibular: within normal limits Cervical ROM: within normal limits Mallampati: Class II Dentition: full Anesthetic Plan ASA status: 3 Anesthesia: MAC Other: No prior issues with anesthesia NPO since yesterday besides a sip of water with pills earlier today History of hypertension on amlodipine and hydrochlorothiazide A-fib with RVR on chronic Eliquis Current smoker, COPD. No home O2. Patient is currently on 2 L O2 nasal cannula Labs reviewed and acceptable for procedure Plan for MAC anesthetic Medications/Allergies Home Medications ?Medication ?Instructions ?Recorded ?Confirmed ?Last Taken ?Type amlodipine 10 mg tablet 10 mg PO DAILY 01/18/21 10/06/24 10/06/24 History cholecalciferol (vitamin D3) 50 50 mcg PO DAILY 01/18/21 10/06/24 10/06/24 History mcg (2,000 unit) capsule potassium chloride 20 mEq 20 meq PO DAILY 03/27/22 10/06/24 10/06/24 History tablet,extended release tamsulosin 0.4 mg capsule (Flomax) 0.4 mg PO DAILY 03/27/22 10/06/24 10/06/24 History apixaban 5 mg tablet 5 mg PO BID 05/15/22 10/06/24 10/06/24 History ascorbic acid (vitamin C) 500 mg 500 mg PO DAILY 05/15/22 10/06/24 10/05/24 History capsule aspirin 81 mg tablet,delayed 81 mg PO DAILY 05/15/22 10/06/24 10/06/24 History release (Adult Aspirin Regimen) furosemide 20 mg tablet (Lasix) 20 mg PO DAILY #30 tabs 0510/06/24 10/06/24 Rx hydrochlorothiazide 25 mg tablet 12.5 mg PO DAILY 10/06/24 10/06/24 10/06/24 History Allergies Allergy/AdvReac Type Severity Reaction Status Date / Time levofloxacin (From Levaquin) Allergy Unknown Unknown Verified 01/19/24 13:01 Current Medications Generic Name Dose Route Start Last Admin Trade Name Freq PRN Reason Stop Dose Admin Apixaban 5 mg 10/06/24 18:32 10/07/24 08:28 Apixaban 5 Mg Tablet PO 5 mg BID BAILEY Administration Aspirin 81 mg 10/07/24 09:00 10/07/24 08:28 Aspirin 81 Mg Ec Tablet PO 81 mg DAILY BAILEY Administration Budesonide 0.5 mg 10/06/24 20:00 10/07/24 08:28 Budesonide 0.5 Mg/2 Ml Neb INHALATION 0.5 mg BID.RESPIRATORY BAILEY Administration Ceftriaxone Sodium 1,000 mg 10/06/24 16:15 10/06/24 17:09 Ceftriaxone 1,000 Mg Sdv IVP 1,000 mg Q24H BAILEY Administration Protocol Azithromycin 500 mg/ Sodium 250 mls @ 250 mls/hr 10/06/24 16:15 10/06/24 18:49 Chloride IV Infused Q24H BAILEY Infusion Protocol Amiodarone HCl/Dextrose 360 mg in 200 mls @ 0 mls/hr 10/07/24 05:56 10/07/24 06:03 Nexterone IV 0.5 mg/min .Q0M BAILEY 16.67 mls/hr Administration Protocol Per Protocol Levalbuterol HCl 0.63 mg 10/06/24 16:20 10/06/24 16:28 Levalbuterol 0.63 Mg/3 Ml Neb INHALATION 0.63 mg Q4H.RESPIRATORY PRN Administration SHORTNESS OF BREATH Methylprednisolone Sodium Succinate 40 mg 10/07/24 06:00 10/07/24 05:41 Methylprednisolone Sod Succ 40 Mg/Ml Inj IVP 40 mg Q8H BAILEY Administration Metoprolol Tartrate 25 mg 10/07/24 08:00 10/07/24 08:28 Metoprolol Tartrate 25 Mg Tablet PO 25 mg Q12H BAILEY Administration Pantoprazole Sodium 40 mg 10/06/24 16:00 10/06/24 17:07 Pantoprazole 40 Mg Sdv IVP 40 mg Q24H BAILEY Administration Tamsulosin HCl 0.4 mg 10/07/24 09:00 10/07/24 08:28 Tamsulosin 0.4 Mg Capsule PO 0.4 mg DAILY BAILEY Administration PFSH Anesthesia Medical History Atrial fibrillation Depression Hypertension Surgical History History of cholecystectomy 1991 Family History Other Cancer Denies family history of Diabetes CAD (coronary artery disease) Hypertension Stroke Social History Smoking and tobacco/nicotine status: current every day tobacco/nicotine user cigarettes Packs smoked per day: 2 Years cigarettes smoked: 50 [ Other cigarette details: started at age 16] Quit status (tobacco/nicotine): considering quitting Alcohol intake: current Alcohol intake frequency: few times a month Substance/Drug Use: never Lives independently: Yes Marital status: / Data Anesthesia 10/07/24 02:30 10/07/24 02:30 Short CBC 10/06/24 10/07/24 Range/Units 12:49 02:30 WBC 9.60 4.49 (3.29-11.43) 10^3/uL Hgb 16.30 14.80 (11.27-16.99) g/dL Hct 47.7 43.8 (37-53) % MCV 84.0 84.1 (82-101) fl Plt Count 234 221 (157-399) 10^3/cmm Neut % (Auto) 72.9 78.0 % Neut # (Auto) 7.00 3.50 (1.8-7.7) 10^3/uL BMP 10/06/24 10/07/24 12:49 02:30 Sodium 137 137 Potassium 3.5 3.4 L Chloride 100 100 Carbon Dioxide 24 22 BUN 15 15 Creatinine 0.9 0.9 Glucose 118 H 171 H Calcium 8.4 L 8.0 L Cardiac Enzymes 10/06/24 10/06/24 10/06/24 Range/Units 12:49 15:28 18:52 Troponin T Baseline 16 H (0-15) ng/L Troponin T 120 Minute 14.61 (0-15) ng/L Delta Troponin T -1.39 L (0-10) ABS# Troponin T Hi Sens 6Hr 13.00 (0-15) ng/L Troponin T Hi Sens 6Hr Delta -3.00 L (0-12) ng/L NT-Pro-B Natriuret Pep 711 H (0-125) pg/mL Liver Function 10/06/24 10/07/24 Range/Units 12:49 02:30 Total Bilirubin 0.5 0.5 (0.15-1.2) mg/dL AST 50 H 48 H (0-40) U/L ALT 76 H 88 H (0-41) U/L Alkaline Phosphatase 69 68 (40-130) U/L Albumin 3.7 3.5 (3.5-5.2) g/dL Urine 10/06/24 Range/Units 21:32 Urine Color Yellow (Yellow) Urine Appearance Clear (CLEAR) Urine pH 5.5 (5-7) Ur Specific [place] 1.026 (1.005-1.030) Urine Protein 1+ A (Negative) Urine Glucose (UA) Negative (Normal) Urine Ketones Trace (Negative) Urine Nitrate Negative (Negative) Urine Bilirubin Negative (Negative) Ur Leukocyte Esterase Negative (Negative) Urine RBC 0-2 (0-2) /hpf Urine WBC 0-5 (0-5) /hpf COVID Results 10/06/24 16:28 Coronavirus (PCR) Negative Coags 10/06/24 10/06/24 12:49 15:28 PT 14.10 INR 1.02 C-Reactive Protein 5.9 H ABG 10/06/24 16:03 Specimen Type Arterial Sample Site Radial, right ABG pH 7.49 H ABG pCO2 31.6 L ABG pO2 63.7 L ABG HCO3 23.8 ABG Base Excess 1.3 O2 Delivery Device Nc O2 Liters/Min 1.0 Microbiology 10/06/24 18:52 Blood Culture - Preliminary Blood SPECIMEN COLLECTED 10/06/24 18:47 Blood Culture - Preliminary Blood SPECIMEN COLLECTED Cardiac Studies: Echocardiogram 12/07/23 Sestamibi Stress Test (Cardiology) 07/03/22
--- NOTE | 2024-10-07 13:52 | PC.SOCIAL ---
IMM Updated Updated pt on IMM. No questions voiced. Provided pt a copy. Initialed, dated, & timed a copy & placed in chart.
[2024-10-07 14:05] LABS: Alanine Aminotransferase 162 U/L (0-41); Albumin Level 3.8 g/dL (3.5-5.2); Alkaline Phosphatase 72 U/L (40-130); Anion Gap 17.7 (5-19); Aspartate Amino Transferase 87 U/L (0-40); Blood Urea Nitrogen 15 mg/dL (8-23); Calcium 8.6 mg/dL (8.5-10.5); Carbon Dioxide 23 mmol/L (22-29); Chloride 100 mmol/L (98-107); Creatinine Clr Calc Pharmacy 101.3049; Globulin 3.4 g/dL (1.3-4.6); Glomerular Filtration Rate 83.9 mL/min (90-130); Glucose 147 mg/dL (65-115); Osmolality Calculated 288 mOsm/kg (285-295); Potassium 3.7 mmol/L (3.5-5.1); Sodium 137 mmol/L (136-145); Total Bilirubin 0.7 mg/dL (0.15-1.2); Total Protein 7.2 g/dL (6.6-8.7)
--- NOTE | 2024-10-07 14:18 | PM.PROC ---
Procedure Note: Date of procedure: 10/07/24 Pre-procedure diagnosis: Atrial fibrillation with RVR Post-procedure diagnosis: other (Normal sinus rhythm) Procedure: After anesthesia team sedated patient, we procced with DCCV shock x 1 at 200 J. Patient converted successfully back to normal sinus rhythm Performing Provider: Perez Calzada Complications: None Condition: stable Disposition: ICU Coding Level of Care Code Acute [facility]
--- NOTE | 2024-10-07 14:30 | ANE.PACU2 ---
Inpatient post-anesthesia follow up: Airway intact: Yes Vital signs: Temperature 97.8 F Pulse Rate 95 Respiratory Rate 21 Blood Pressure 136/74 Pulse Oximetry 92 Oxygen Delivery Me thod Nasal Cannula Oxygen Flow Rate 3 Fraction of Inspir ed Oxygen Hydration adequate: Yes Nausea and vomiting: No Pain level: 1 Mental status: Baseline
--- NOTE | 2024-10-07 14:50 | PC.NURSE ---
Transfer Note Patient transferred to CSU room 101 from ICU via bed. Handoff report given to KRYSTINA Soriano. Patient oriented to environment and equipment. Covering service notified. Orders reviewed and will continue to monitor. Family notified of patient transfer. Upon transfer patient is alert/oriented x4 on 2LNC, no wounds/skin issues noted at this time. All belongings transferred with patient and placed at bedside. All questions answered at this time.
--- NOTE | 2024-10-07 15:05 | PC.NURSE ---
Patient transferred from ICU to CSU via bed with an amio drip running at 0.5 at 1455.
--- NOTE | 2024-10-07 15:54 | PC.NURSE ---
Amiodarone Drip Received verbal orders from ASHISH Olguin to keep amiodarone gtt running for 24 hours post cardioversion.
[2024-10-07] MEDS: cefTRIAXone 1,000 mg SDV 1000 MG IVP (16:30)
[2024-10-07] MEDS: pantoprazole 40 mg SDV IVP (16:30)
[2024-10-07] MEDS: AZITHROMYCIN ADD-Vantage 500 MG in 0.9% NaCl ADD-Vantage 250 ML 250 MG IV (16:30)
--- NOTE | 2024-10-07 16:36 | P.PN_ITS ---
Subjective 2 Subjective: Patient was seen this morning he is alert oriented x 3, no chest pain but does report palpitations, no fevers, no chills following all commands heart rates remain in the 140s, A-fib with RVR, remains on amiodarone drip, amiodarone drip increased to 1, given amiodarone bolus, given 25 mg of metoprolol, monitored, monitored thereafter, hour later continues to have heart rates in the 140s, atrial fibrillation, spoke to cardiology Dr. Alston, will consult for cardioversion planning cardioversion later on this afternoon, spoke to patient about cardioversion, discussed risks and benefits, he voiced understanding, all question answered, agreed to proceed Vitals/I&O/Wt Last Vital Signs Temp 97.8 F 10/07/24 16:00 Pulse 95 10/07/24 16:00 Resp 21 H 10/07/24 16:00 BP 136/74 10/07/24 16:00 Pulse Ox 92 10/07/24 16:00 O2 Del Method Nasal Cannula 10/07/24 16:00 O2 Flow Rate 3 10/07/24 08:28 10/07/24 10/07/24 10/07/24 06:59 14:59 22:59 Intake Total 131.138 / 1193.054 0 / 0 Balance 131.138 / 1193.054 0 / 0 Weight last 48 hrs Weight 114.986 kg Weight 117.934 kg Physical Exam 2 Const: COMMON NORMALS: no acute distress and patient oriented x3 Resp: COMMON NORMALS: normal respiratory effort, No retractions and No use of accessory muscles AUSCULTATION: crackles and wheezes Cardio: COMMON NORMALS: regular rhythm, S1 normal heart sound present and S2 normal heart sound present RATE: tachycardic RHYTHM: regular rhythm and abnormal rhythm HEART SOUNDS: S1 normal heart sound present and S2 normal heart sound present GI: COMMON NORMALS: Normal to inspection, nondistended, normoactive bowel sounds present and non-tender Extremity: COMMON NORMALS: no pedal edema Neuro: COMMON NORMALS: patient oriented x3 Psych: COMMON NORMALS: mental status grossly normal Data 10/07/24 02:30 10/07/24 13:37 Micro: Microbiology 10/06/24 18:52 Blood Culture - Preliminary Blood SPECIMEN COLLECTED 10/06/24 18:47 Blood Culture - Preliminary Blood SPECIMEN COLLECTED A&P Assessment and plan (1) Asthma-COPD overlap syndrome: (2) Acute hypoxic respiratory failure: (3) Atrial fibrillation with rapid ventricular response: (4) Pneumonia: (5) COPD exacerbation: Plan Acute hypoxic respiratory failure -Multifactorial -A-fib with RVR -Concerns for pneumonia -COPD exacerbation CT chest CT/CT chest wo con [id number] IMPRESSION: 1. Mild tree-in-bud nodularity bilaterally favors an atypical infectious process. Consider imaging follow-up after clinical treatment to document resolution. Plan -Monitor cardiac stepdown unit -Sputum cultures -Blood cultures -Continue Rocephin -Azithromycin -DuoNeb -Budesonide -De-escalate to prednisone 40 mg daily A-fib with RVR -Did not respond to Cardizem push, Cardizem drip -Has received amiodarone bolus and amiodarone drip, amiodarone bolus, metoprolol -Cardiology consulted for cardioversion Full code Eliquis for DVT prophylaxis Patient was seen multiple times throughout the day, amiodarone drip increased to 1, given amiodarone bolus of 150 did not respond given 25 mg of metoprolol did not respond heart rates are in in the 140s cardiology consulted for cardioversion plan for cardioversion this afternoon, de-escalate to prednisone 40 mg daily continue IV antibiotics PDMP PDMP Reviewed: Not Reviewed Attestations 2 Medical Necessity Statement*: Patient requires hospitalization for acute hypoxic respiratory failure secondary to A-fib with RVR, pneumonia, COPD requiring cardioversion Diagnoses Asthma-COPD overlap syndrome J44.89 Acute hypoxic respiratory failure J96.01 Atrial fibrillation with rapid ventricular response I48.91 Pneumonia J18.9 COPD exacerbation J44.1
--- NOTE | 2024-10-07 17:56 | PC.NURSE ---
Provider called nursing staff to update nursing on patients amiodarone. Provider put in an order of PO amiodarone 400 mg BID and then gave a verbal order to stop amiodarone drip 2 hours after giving the PO amiodarone.
[2024-10-07] MEDS: amiodarone 200 mg Tablet 400 MG PO (18:10)
[2024-10-08 04:00] VITALS: BP 131/77; PULSE 83; RESP 23; TEMP 36.4; O2SAT 93
[2024-10-08 04:42] LABS: Basophils % 0.1 %; Hematocrit 42.4 % (37-53); Lymphocytes # 1.2 10^3/uL (0.8-4.8); Lymphocytes % 11.2 %; Mean Corpuscular HGB Conc 32.8 g/dL (30-55); Mean Corpuscular Hemoglobin 28.9 pg (27-33); Mean Corpuscular Volume 88.1 fl (82-101); Mean Platelet Volume 10.5 fL (7.4-10.4); Monocytes # 0.4 10^3/uL (0.2-0.9); Monocytes % 3.3 %; Neutrophils # 9.09 10^3/uL (1.8-7.7); Nucleated Red Blood Cells % 0 %; Platelet Count 228 10^3/cmm (157-399); Red Blood Count 4.81 10^6/uL (3.85-5.65); Red Cell Distribution Width 13.7 % (12.1-15.1); White Blood Count 10.69 10^3/uL (3.29-11.43)
[2024-10-08 04:57] VITALS: BMI 36.3
[2024-10-08 05:03] LABS: Alanine Aminotransferase 352 U/L (0-41); Albumin Level 3.7 g/dL (3.5-5.2); Alkaline Phosphatase 67 U/L (40-130); Anion Gap 15.9 (5-19); Aspartate Amino Transferase 157 U/L (0-40); Blood Urea Nitrogen 21 mg/dL (8-23); Calcium 8.5 mg/dL (8.5-10.5); Carbon Dioxide 25 mmol/L (22-29); Chloride 105 mmol/L (98-107); Creatinine Clr Calc Pharmacy 102.8293; Globulin 2.9 g/dL (1.3-4.6); Glomerular Filtration Rate 83.9 mL/min (90-130); Glucose 157 mg/dL (65-115); Osmolality Calculated 300 mOsm/kg (285-295); Potassium 3.9 mmol/L (3.5-5.1); Sodium 142 mmol/L (136-145); Total Bilirubin 0.4 mg/dL (0.15-1.2); Total Protein 6.6 g/dL (6.6-8.7)
[2024-10-08 05:22] VITALS: PULSE 83
[2024-10-08] MEDS: methylPREDNISolone sod succ 40 mg/mL INJ IVP (06:04)
[2024-10-08 06:27] LABS: Slide Review Slide Review Perform
[2024-10-08 07:25] VITALS: BP 145/86; PULSE 85; RESP 20; TEMP 37; O2SAT 91
[2024-10-08] MEDS: tamsulosin 0.4 mg Capsule PO (08:18)
[2024-10-08] MEDS: predniSONE 20 mg Tablet 40 MG PO (08:19)
[2024-10-08] MEDS: metoprolol tartrate 25 mg Tablet PO (08:19)
[2024-10-08] MEDS: aspirin 81 mg EC Tablet PO (08:19)
[2024-10-08] MEDS: amiodarone 200 mg Tablet 400 MG PO (08:19)
[2024-10-08] MEDS: apixaban 5 mg Tablet PO (08:19)
--- NOTE | 2024-10-08 08:41 | USR_ITS ---
PROCEDURE INFORMATION: Exam: US Abdomen, Limited; Right Upper Quadrant Exam date and time: 10/08/2024 10:32 AM Age: 69 years old Clinical indication: Abnormal findings; Abnormal lab test; Elevated liver enzymes; Prior surgery; Surgery date: 6+ months; Surgery type: Cholecystectomy; Additional info: Tranaminitis TECHNIQUE: Imaging protocol: Real time ultrasound of the abdomen with image documentation. Limited exam focused on the right upper quadrant. COMPARISON: CT chest wo con [id number] 10/06/2024 4:36 PM FINDINGS: Liver: The liver measures 17.2 cm in length. There is diffuse increased echogenicity of the liver consistent steatosis. Gallbladder: There has been a cholecystectomy. Biliary ducts: Normal. No stones. No dilation. The CBD measures 4 mm. Pancreas: Visualized pancreas is unremarkable. Right kidney: Normal. No mass. No hydronephrosis. The right kidney measures 12.2 x 4.7 x 5.6 cm. The right renal cortex measures 1.1 cm. US/US liver [id number] IMPRESSION: 1. Hepatic steatosis with hepatomegaly. 2. Post cholecystectomy with no biliary dilatation.
[2024-10-08 09:03] LABS: HIV 1 & 2 Antibody Non-Reactive (Non-Reactiv); HIV 1 & 2 Antigen Non-Reactive (Non-Reactiv)
[2024-10-08 09:05] LABS: Acetaminophen < 5.0 ug/mL (10-30); Gamma Glutamyl Transferase 71 U/L (8-61)
[2024-10-08 09:19] LABS: Hepatitis A Antibody IgM Non-Reactive (Nonreactive); Hepatitis B Core IgM Non-Reactive (Nonreactive); Hepatitis B Surface Antigen Non-Reactive (Nonreactive); Hepatitis C Virus Antibody Non-Reactive (Nonreactive)
--- NOTE | 2024-10-08 11:51 | PC.NURSE ---
Dr. James ordered to stop amiodarone PO due to elevated liver studies. Provider will discuss other options with patient.
[2024-10-08 12:00] VITALS: BP 138/72; PULSE 86; RESP 18; TEMP 36.8; O2SAT 94
--- NOTE | 2024-10-08 13:11 | P.PN_ITS ---
Subjective 2 Subjective: Patient remained in sinus rhythm however liver enzymes are gone up most likely secondary to amiodarone therefore we will discontinue the amiodarone Vitals/I&O/Wt Last Vital Signs Temp 98.6 F 10/08/24 07:25 Pulse 85 10/08/24 07:25 Resp 20 H 10/08/24 07:25 BP 145/86 10/08/24 07:25 Pulse Ox 91 10/08/24 07:25 O2 Del Method Nasal Cannula 10/08/24 07:25 O2 Flow Rate 2 10/08/24 07:25 10/07/24 10/08/24 10/08/24 22:59 06:59 14:59 Intake Total 670 / 670 440 / 1110 120 / 120 Output Total 325 / 325 200 / 525 Balance 345 / 345 240 / 585 120 / 120 Weight last 48 hrs Weight 261 lb 1 oz Weight 253 lb 8 oz Physical Exam 2 Const: OTHER: GENERAL: Patient is alert, awake and oriented x3. HEART: Regular S1 and S2. No murmur, rub or gallop. LUNGS: Clear to auscultate bilaterally. CENTRAL NERVOUS SYSTEM: Grossly nonfocal. EXTREMITIES: Lower extremities with out edema bilaterally. Data 10/08/24 02:20 10/08/24 02:20 Micro: Microbiology 10/06/24 18:47 Blood Culture - Preliminary Blood NEGATIVE TO DATE 10/06/24 18:52 Blood Culture - Preliminary Blood NEGATIVE TO DATE A&P Assessment and plan (1) Atrial fibrillation: Qualifiers: Atrial fibrillation type: paroxysmal Qualified Code(s): I48.0 - Paroxysmal atrial fibrillation (2) Atrial fibrillation with rapid ventricular response: (3) Dyspnea on exertion: Plan Due to worsening of liver function will discontinue amiodarone Continue metoprolol 25 mg twice daily and Cardizem 60 mg twice daily If patient go back into A-fib may will consider sotalol Continue Eliquis 5 mg twice daily. Follow-up with cardiology nurse practitioner within 2 weeks PDMP PDMP Reviewed: Not Reviewed Attestations 2 Medical Necessity Statement*: From cardiovascular perspective patient can be discharged home, Coding Level of Care Code Acute Code for Chg Fwd Diagnoses Paroxysmal atrial fibrillation I48.0 Atrial fibrillation type: paroxysmal Atrial fibrillation with rapid ventricular response I48.91 Dyspnea on exertion R06.00
[2024-10-08 15:15] VITALS: PULSE 84; RESP 18; O2SAT 94
--- NOTE | 2024-10-08 15:19 | PM.DCS ---
Discharge Providers Date of Admission: 10/06/24 15:45 Date of Discharge: October 08, 2024 Attending Provider at Admission: Alejandro Grimes MD Attending Provider at Discharge: Alejandro Grimes MD Primary Care Provider: Anat Ulloa MD Diagnoses at Discharge Discharge Diagnosis (1) Atrial fibrillation: Status: Acute Qualifiers: Atrial fibrillation type: paroxysmal Qualified Code(s): I48.0 - Paroxysmal atrial fibrillation (2) Atrial fibrillation with rapid ventricular response: Status: Acute (3) Dyspnea on exertion: Status: Acute Reason for Visit Reason for Visit: sob Hospital Course Hospital Course Daniel Torres is a 69 year old male with a past medical history of obesity, hypertension, diastolic CHF, atrial fibrillation on Eliquis who presents [facility] due to palpitations, shortness of breath. Currently patient is alert oriented x 3, following all commands, he tells me a week ago he was sick, he thinks he had the flu, he had fevers, chills, cough continues to have a cough however sputum vision chills have resolved. But for the last few days he has had palpitations heart rates up into the low 130s 140s at home, he has been taking his Metroprolol taking his Eliquis, continues to have a cough, no fevers, chills but does have diarrhea, no abdominal pain, no chest pain Patient was admitted to [facility] for acute hypoxic respiratory failure multifactorial from A-fib and RVR, pneumonia, COPD managed with IV antibiotics, IV steroids, overall clinically improved. Will be discharged on prednisone burst, doxycycline with a close follow-up with primary care provider as outpatient, CT of the chest showed mild tree-in-bud nodular bilateral favors atypical infectious process, repeat CT chest in a month through primary care First A-fib with RVR, not responding to Cardizem, amiodarone, metoprolol, cardiology was consulted underwent cardioversion successfully. Patient remained in sinus rhythm for the next 24 hours, will be discharged on metoprolol, Cardizem with a close follow-up with the primary care provider and cardiology as outpatient. Patient was initially managed on amiodarone but developed transaminitis likely secondary to amiodarone. Thus amiodarone was discontinued, patient is to follow-up with primary care provider recheck LFTs next week. Physical Exam Const: COMMON NORMALS: no acute distress and patient oriented x3 Resp: COMMON NORMALS: normal respiratory effort, No retractions, No use of accessory muscles and clear to auscultation bilaterally AUSCULTATION: clear to auscultation bilaterally Cardio: COMMON NORMALS: regular rate, regular rhythm, S1 normal heart sound present and S2 normal heart sound present RATE: regular rate RHYTHM: regular rhythm HEART SOUNDS: S1 normal heart sound present and S2 normal heart sound present GI: COMMON NORMALS: Normal to inspection, nondistended, normoactive bowel sounds present and non-tender Extremity: COMMON NORMALS: no pedal edema Neuro: COMMON NORMALS: patient oriented x3 Psych: COMMON NORMALS: mental status grossly normal Discharge Data Studies Completed and Pending Completed Studies During Hospitalization Category Date Time Status CT chest wo con [id number] Routine Cat Scan 10/06/24 16:05 Completed XR chest 1V portable [id number] Stat Exams 10/06/24 12:42 [place] liver [id number] Routine Ultrasound 10/08/24 08:41 Completed Pending at discharge Category Date Time Status Blood Culture Stat Lab 10/06/24 18:52 Results Complete Blood Count w/Auto AM LABS Lab 10/09/24 04:00 Ordered Comprehensive Metabolic Panel AM LABS Lab 10/09/24 04:00 Ordered Sputum Culture and Gram Stain Stat Lab 10/06/24 16:13 Uncollected Radiology Impressions Chest X-Ray 10/06/24 12:42 Impression: Hyperinflation and atherosclerosis. Chest CT 10/06/24 16:05 IMPRESSION: 1. Mild tree-in-bud nodularity bilaterally favors an atypical infectious process. Consider imaging follow-up after clinical treatment to document resolution. 2. 6 mm left upper lobe ground-glass nodule. For patients at low risk (minimal or absent history of smoking and of other known risk factors), no routine follow-up is indicated. For patients at high risk (history of smoking or of other known risk factors), consider optional CT Chest at 12 months. (Reference: Gela) 3. Hepatic steatosis. 4. Status post cholecystectomy. 5. Colonic diverticulosis. 6. Left adrenal nodules may represent adenomas. In a patient with no cancer history, consider 12 month follow-up adrenal CT. (Reference: Isabel) COMMENTS: Consistent with the [employer]'s Incidental Findings Committee white paper (J Am Gabriel Radiol 2017): For any incidental adrenal lesion greater than or equal to 1 cm but less than or equal to 4 cm classified in this report as benign, likely benign, or containing fat (including classification as an adenoma or myelolipoma), no follow-up imaging is recommended per consensus recommendations based on imaging criteria. Further lab evaluation could be pursued if warranted based on clinical findings. REFERENCES: 1. Isabel REEDER, et al. Management of Incidental Adrenal Masses: A White Paper of the ACR Incidental Findings Committee. J Am Gabriel Radiol. 2017;14(8):8692-0287. 2. Gela H, et al. Guidelines for Management of Incidental Pulmonary Nodules Detected on CT Images: From the Fleischner Society 2017. Radiology. 2017;284(1):228-243. Liver Ultrasound 10/08/24 08:41 IMPRESSION: 1. Hepatic steatosis with hepatomegaly. 2. Post cholecystectomy with no biliary dilatation. Laboratory Results WBC 10.69 10^3/uL (3.29-11.43) 10/08/24 02:20 RBC 4.81 10^6/uL (3.85-5.65) 10/08/24 02:20 Hgb 13.90 g/dL (11.27-16.99) 10/08/24 02:20 Hct 42.4 % (37-53) 10/08/24 02:20 MCV 88.1 fl (82-101) 10/08/24 02:20 MCH 28.9 pg (27-33) 10/08/24 02:20 MCHC 32.8 g/dL (30-55) 10/08/24 02:20 RDW 13.7 % (12.1-15.1) 10/08/24 02:20 Plt Count 228 10^3/cmm (157-399) 10/08/24 02:20 MPV 10.5 fL (7.4-10.4) H 10/08/24 02:20 Neut % (Auto) 85.0 % 10/08/24 02:20 Lymph % (Auto) 11.2 % 10/08/24 02:20 Thomas % (Auto) 3.3 % 10/08/24 02:20 Eos % (Auto) 0.0 % 10/08/24 02:20 Baso % (Auto) 0.1 % 10/08/24 02:20 Neut # (Auto) 9.09 10^3/uL (1.8-7.7) H 10/08/24 02:20 Lymph # (Auto) 1.2 10^3/uL (0.8-4.8) 10/08/24 02:20 Thomas # (Auto) 0.4 10^3/uL (0.2-0.9) 10/08/24 02:20 Eos # (Auto) 0.0 10^3/uL (0.0-0.8) 10/08/24 02:20 Baso # (Auto) 0.0 10^3/uL (0.0-0.1) 10/08/24 02:20 Nucleated RBC % (auto) 0 % 10/08/24 02:20 Nucleated RBCs # 0.0 /100WBC 10/08/24 02:20 PT 14.10 SECONDS (12.1-14.9) 10/06/24 12:49 INR 1.02 (0.8-1.2) 10/06/24 12:49 Specimen Type Arterial 10/06/24 16:03 Sample Site Radial, right 10/06/24 16:03 ABG pH 7.49 (7.35-7.45) H 10/06/24 16:03 ABG pCO2 31.6 mmHg (35-45) L 10/06/24 16:03 ABG pO2 63.7 mmHg (80.0-100.0) L 10/06/24 16:03 ABG HCO3 23.8 mmol/L (22-26) 10/06/24 16:03 ABG Base Excess 1.3 mmol/L (-2.0-2.0) 10/06/24 16:03 [place] Test Pos 10/06/24 16:03 Hematocrit 51.6 % (42-52) 10/06/24 16:03 O2 Delivery Device Nc 10/06/24 16:03 O2 Liters/Min 1.0 % 10/06/24 16:03 Preschool Teacher'S Assistant ID Fabiano 10/06/24 16:03 Sodium 142 mmol/L (136-145) 10/08/24 02:20 Potassium 3.9 mmol/L (3.5-5.1) 10/08/24 02:20 Chloride 105 mmol/L (98-107) 10/08/24 02:20 Carbon Dioxide 25 mmol/L (22-29) 10/08/24 02:20 Anion Gap 15.9 (5-19) 10/08/24 02:20 BUN 21 mg/dL (8-23) 10/08/24 02:20 Creatinine 0.9 mg/dL (0.7-1.2) 10/08/24 02:20 GFR Calculation 83.9 mL/min (90-130) L 10/08/24 02:20 Glucose 157 mg/dL (65-115) H 10/08/24 02:20 Estimat Average Glucose 117 10/06/24 12:49 Hemoglobin A1c 5.7 % (4.0-6.0) 10/06/24 12:49 Calculated Osmolality 300 mOsm/kg (285-295) H 10/08/24 02:20 Lactic Acid 1.5 mmol/L (0.5-2.2) 10/06/24 12:49 Calcium 8.5 mg/dL (8.5-10.5) 10/08/24 02:20 Magnesium 1.7 mg/dL (1.7-2.3) 10/06/24 15:28 Total Bilirubin 0.4 mg/dL (0.15-1.2) 10/08/24 02:20 GGT 71 U/L (8-61) H 10/08/24 02:20 AST 157 U/L (0-40) H 10/08/24 02:20 ALT 352 U/L (0-41) H 10/08/24 02:20 Alkaline Phosphatase 67 U/L (40-130) 10/08/24 02:20 Troponin T Baseline 16 ng/L (0-15) H 10/06/24 12:49 Troponin T 120 Minute 14.61 ng/L (0-15) 10/06/24 15:28 Delta Troponin T -1.39 ABS# (0-10) L 10/06/24 15:28 Troponin T Hi Sens 6Hr 13.00 ng/L (0-15) 10/06/24 18:52 Troponin T Hi Sens 6Hr Delta -3.00 ng/L (0-12) L 10/06/24 18:52 C-Reactive Protein 5.9 mg/L (0.0-4.9) H 10/06/24 15:28 NT-Pro-B Natriuret Pep 711 pg/mL (0-125) H 10/06/24 15:28 Total Protein 6.6 g/dL (6.6-8.7) 10/08/24 02:20 Albumin 3.7 g/dL (3.5-5.2) 10/08/24 02:20 Globulin 2.9 g/dL (1.3-4.6) 10/08/24 02:20 Triglycerides 81 mg/dL (0-150) 10/06/24 15:28 Cholesterol 95 mg/dL (0-200) 10/06/24 15:28 LDL Cholesterol, Calc 47 mg/dL (50-129) L 10/06/24 15: HDL Cholesterol 32 mg/dL (60-100) L 10/06/24: LDL/HDL Ratio 1.47 RATIO (0.00-3.22) 10/06/24 15: Cholesterol/HDL Ratio 2.97 mg/dL (1.0-5.00) 10/06/24 15: Procalcitonin 0.07 ng/mL (0-0.5) 10/06/24 15: Urine Color Yellow (Yellow) 10/06/24 21: Urine Appearance Clear (CLEAR) 10/06/24 21: Urine pH 5.5 (5-7) 10/06/24 21: Ur Specific [place] 1.026 (1.005-1.030) 10/06/24 21: Urine Protein 1+ (Negative) A 10/06/24 21: Urine Glucose (UA) Negative (Normal) 10/06/24 21: Urine Ketones Trace (Negative) 10/06/24 21: Urine Blood Negative (Negative) 10/06/24 21: Urine Nitrate Negative (Negative) 10/06/24 21: Urine Bilirubin Negative (Negative) 10/06/24 21: Urine Urobilinogen 1.0 mg/dL (Negative) 10/06/24 21: Ur Leukocyte Esterase Negative (Negative) 10/06/24 21:32 Urine RBC 0-2 /hpf (0-2) 10/06/24 21:32 Urine WBC 0-5 /hpf (0-5) 10/06/24 21: Ur Squamous Epith Cells 0-5 /hpf (0-5) 10/06/24 21:32 Amorphous Sediment Not Reportable 10/06/24 21:32 Urine Bacteria None seen /hpf (NONE) 10/06/24 21:32 Hyaline Casts 10.73 /lpf 10/06/24 21:32 Acetaminophen < 5.0 ug/mL (10-30) L 10/08/24 02:20 Coronavirus (PCR) Negative (Negative) 10/06/24 16:28 Hepatitis A IgM Ab Non-reactive (Nonreactive) 10/08/24 02:20 Hep Bs Antigen Non-reactive (Nonreactive) 10/08/24 02:20 Hep B Core IgM Ab Non-reactive (Nonreactive) 10/08/24 02:20 Hepatitis C Antibody Non-reactive (Nonreactive) 10/08/24 02:20 HIV 1&2 Ab & HIV 1 Ag Non-reactive (Non-Reactiv) 10/08/24 02:20 HIV 1&2 Antibody Non-reactive (Non-Reactiv) 10/08/24 02:20 Influenza A (PCR) Negative (Negative) 10/06/24 16:28 Influenza Type B (PCR) Negative (Negative) 10/06/24 16:28 RSV (PCR) Negative (Negative) 10/06/24 16:28 Vitals Last Vital Signs Temp 98.3 F 10/08/24 12:00 Pulse 84 10/08/24 15:15 Resp 18 10/08/24 15:15 BP 138/72 10/08/24 12:00 Pulse Ox 94 10/08/24 15:15 O2 Del Method Room Air 10/08/24 15:15 O2 Flow Rate 2 10/08/24 07:25 Discharge Plan Discharge Patient Disposition: Home Condition: Stable Prescriptions: New metoprolol tartrate 25 mg Tablet 25 mg PO Q12H 30 Days Qty: 60 0RF prednisone 20 mg Tablet 40 mg PO DAILY 5 Days Qty: 10 0RF diltiazem HCl 60 mg Tablet 60 mg PO Q12H 30 Days Qty: 60 0RF doxycycline hyclate 100 mg tablet 100 mg PO BID 5 Days Qty: 10 0RF Continued cholecalciferol (vitamin D3) 50 mcg (2,000 unit) capsule 50 mcg PO DAILY potassium chloride 20 mEq tablet extended release 20 meq PO DAILY tamsulosin [Flomax] 0.4 mg capsule 0.4 mg PO DAILY apixaban 5 mg tablet 5 mg PO BID aspirin [Adult Aspirin Regimen] 81 mg tablet,delayed release (DR/EC) 81 mg PO DAILY ascorbic acid (vitamin C) 500 mg capsule 500 mg PO DAILY furosemide [Lasix] 20 mg tablet 20 mg PO DAILY Qty: 30 0RF hydrochlorothiazide 25 mg Tablet 12.5 mg PO DAILY Discontinued amlodipine 10 mg tablet 10 mg PO DAILY Discharge Orders: Discharge Order (Routine); Ordered 10/08/24 Ordered By: Alejandro Grimes Referrals: Anat Ulloa MD [Primary Care Provider] - 1 week Earnestine James MD [Physician] - 1 week Discharge Diet: Cardiac Discharge Activity: Resume usual activity Patient Instructions: Opioid Safety Activity Restrictions/Additional Instructions: - Please have your primary care provider recheck your liver function next week -Your AST is 157 ALT 352 -If you develop nausea vomiting and develop jaundice please immediately go to the emergency room -Please follow-up with cardiology next week -For pneumonia discharged on Doxy 100 twice daily -Have your primary care provider repeat a CT of your chest in 1 month Discharge Attestations Time Spent in Discharge Care*: greater than 30 min Quality Metrics Clinical Quality Measures [ No reported AMI, CVA or VTE this stay] Coding Level of Care Code 95532 Total time (in minutes) for Discharge: 45 Diagnoses Paroxysmal atrial fibrillation I48.0 Atrial fibrillation type: paroxysmal Atrial fibrillation with rapid ventricular response I48.91 Dyspnea on exertion R06.00
[2024-10-08 16:27] VITALS: BP 152/78; PULSE 84; RESP 20; O2SAT 98
== END 2024-10-08 16:56 | disposition home or self-care (01) | DRG 308 ==
LOC: ER 15:22 → ER IP 18:42 → ICU 10-07 06:50 → CSU 10-07 14:46
PROVIDERS: Internal Medicine; Admitting Provider Family Medicine; Emergency Provider Family Medicine; PCP Family Medicine; Visit Provider Family Medicine
DX: I48.0 Paroxysmal atrial fibrillation (principal); J18.9 Pneumonia, unspecified organism; J96.01 Acute respiratory failure with hypoxia; I50.32 Chronic diastolic (congestive) heart failure; J44.1 Chronic obstructive pulmonary disease with (acute) exacerbation; E66.9 Obesity, unspecified; Z68.36 Body mass index [BMI] 36.0-36.9, adult; I11.0 Hypertensive heart disease with heart failure; Z79.01 Long term (current) use of anticoagulants; F32.A Depression, unspecified; F17.210 Nicotine dependence, cigarettes, uncomplicated; Z79.82 Long term (current) use of aspirin
CPT/HCPCS: 36415; 36600; 71045; 71250; 76705; 80053; 80061; 80074; 80307; 81001; 82803; 82977; 83036; 83605; 83735; 83880; 84145; 84484; 85025; 85610; 86140; 87040; 87637; 87806; 93005; 94640; 94664; 96376; J0282; J0283; J0456; J0696; J2470; J2704; J2919; J3490; J7050; J7120; J7512; J7614; J7626

== ENCOUNTER → 2024-10-25 12:35 | Outpatient (BNVA) | payer OTHER, SELFPAY | PROVIDERS: PCP Family Medicine; Visit Provider Internal Medicine | DX: I10 Essential (primary) hypertension (principal); I48.0 Paroxysmal atrial fibrillation; R06.00 Dyspnea, unspecified; F17.210 Nicotine dependence, cigarettes, uncomplicated; Z79.01 Long term (current) use of anticoagulants; Z79.82 Long term (current) use of aspirin | CPT/HCPCS: 36415; 80048; 83880; 99214 ==

== ENCOUNTER 2024-10-26 09:42 | Outpatient (CLI) | payer OTHER, SELFPAY ==
--- NOTE | 2024-10-26 09:46 | USCV_ITS ---
Daniel Torres Age: 69 Gender: M : 1955 Exam Date: 10/26/2024 10:09 Ordering Phys: Anat Ulloa MD Technologist: Exam Location: [facility] [place] Indication: tia Risk Factors: Previous Vascular Surgery: Right Brachial BP: / Left Brachial BP: / Right Left Velocity (cm/s) Spectral Plaque Velocity (cm/s) Spectral Plaque Syst/Diast Broadening Syst/Diast Broadening 50.40/ 11.50 Prox CCA 50.90 / 14.40 43.90/ 11.80 Mid CCA 47.80 / 15.50 37.40/ 12.80 Distal CCA 51.90 / 17.60 34.50/ 11.10 Prox ICA 31.10 / 11.30 41.60/ 17.80 Mid ICA 64.70 / 21.00 43.30/ 17.80 Distal ICA 52.60 / 17.90 54.00 ECA 61.30 1.20 ICA/CCA 1.20 Antegrade Vertebral Antegrade 31.40/ 8.40 cm/s 72.20/ 0.00 cm/s Tri Subclavian Bi 73.90 83.00 CONCLUSIONS Right ICA stenosis <50%. Mild atheromatous plaque right carotid bulb/ICA. Left ICA stenosis <50%. Mild atheromatous plaque left carotid bulb/ICA. Normal antegrade Doppler flow noted in the right vertebral artery. Normal antegrade Doppler flow noted in the left vertebral artery. Jose Luis Hurt MD (Electronically Signed) Final Date: 26 October 2024 11:35 S
== END 2024-10-26 09:43 | disposition home or self-care (01) ==
LOC: RAD 09:42
PROVIDERS: PCP Family Medicine; Visit Provider Family Medicine
DX: R55 Syncope and collapse (principal); I65.23 Occlusion and stenosis of bilateral carotid arteries
CPT/HCPCS: 93880

== ENCOUNTER → 2025-01-25 13:21 | Outpatient (BNVA) | payer OTHER, SELFPAY | PROVIDERS: PCP Family Medicine; Visit Provider Internal Medicine | DX: R06.09 Other forms of dyspnea (principal); I10 Essential (primary) hypertension; I48.0 Paroxysmal atrial fibrillation; Z79.01 Long term (current) use of anticoagulants; Z79.82 Long term (current) use of aspirin; F17.210 Nicotine dependence, cigarettes, uncomplicated | CPT/HCPCS: 99214 ==

== ENCOUNTER 2025-05-19 06:16 | Outpatient (CLI) | payer OTHER, SELFPAY ==
--- NOTE | 2025-05-19 07:27 | CT_ITS ---
WS: [id number] LDCT LUNG CANCER SCREENING HISTORY: HISTORY OF TOBACCO USE TECHNIQUE: Axial imaging performed from the apices to 1 cm below the costophrenic angles. Coronal and sagittal reformats are submitted with axial MIP series. All CT scans at [facility] use at least one of these dose optimization techniques: automated exposure control; mA and/or kV adjustment per patient size (includes targeted exams where dose is matched to clinical indication); or iterative reconstruction. DLP: 136.88 mGy DIvol: 3.4 COMPARISON: 10/06/2024 Diagnostic quality: Satisfactory Lungs: Pulmonary hyperexpansion. Mild hazy attenuation throughout both lungs. Biapical pleural thickening and scarring. Stable pleural nodule in the posterior RIGHT upper lobe. No residual areas of groundglass attenuation. No pneumonia. Benign calcified granuloma RIGHT upper lobe. Heart: Normal size heart with no pericardial effusion.. Other findings: Mild atherosclerosis aorta. No aneurysm. Normal pulmonary artery. No adenopathy. Subcutaneous soft tissue nodule measuring 1.3 cm in the anterior chest wall stable. Hepatic steatosis. Small hiatal hernia. Prior cholecystectomy. LEFT adrenal hyperplasia. Thickening of both adrenal gland limbs. Similar to the prior study. CT/CT lung screening [id number] IMPRESSION: LUNG-RADS: 2-Benign Appearance or Behavior FOLLOW UP: 12 Month: Continue annual screening with LDCT OTHER FINDINGS (S MODIFIER): None.
== END 2025-05-19 06:17 | disposition home or self-care (01) ==
LOC: RAD 06:17
PROVIDERS: PCP Family Medicine; Visit Provider Nurse Practitioner Family
DX: Z12.2 Encounter for screening for malignant neoplasm of respiratory organs (principal); Z72.0 Tobacco use; J98.4 Other disorders of lung; R91.8 Other nonspecific abnormal finding of lung field; J92.9 Pleural plaque without asbestos; R91.1 Solitary pulmonary nodule
CPT/HCPCS: 71271

== ENCOUNTER → 2025-07-31 08:06 | Outpatient (BNVA) | payer OTHER, SELFPAY | PROVIDERS: PCP Family Medicine; Visit Provider Nurse Practitioner Family | DX: I48.91 Unspecified atrial fibrillation (principal); I10 Essential (primary) hypertension; F17.210 Nicotine dependence, cigarettes, uncomplicated; R91.1 Solitary pulmonary nodule; Z79.01 Long term (current) use of anticoagulants | CPT/HCPCS: 99214 ==